=== PATIENT | female | born 1950 | race Caucasian/White ===

== ENCOUNTER 2020-11-03 13:19 | Outpatient (CLI) | payer MEDICARE, BC, SELFPAY ==
--- NOTE | 2020-11-03 06:00 | DI.RAD_ITS ---
Exam(s) XR PAIN CLINIC LUMBAR SP 2V EXAM: XR PAIN CLINIC LUMBAR SP 2V CLINICAL HISTORY: Dx: Lumbar Radiculopathy TECHNIQUE: 2D and realtime digital imaging was performed. Radiologist not present. CONTRAST MATERIAL: None. COMPARISON: No exams were available for comparison FINDINGS: Fluoroscopy was provided for pain management therapy performed for lumbar epidural steroid injection Please refer to procedure report or details. Cumulative dose: Ka,r=14.12 mGy IMPRESSION: RADIATION DOSE DELIVERED:
[2020-11-03 13:50] VITALS: BP 118/76; PULSE 72; RESP 18; TEMP 36.6; O2SAT 93
[2020-11-03 14:32] VITALS: BP 135/84; PULSE 74; RESP 19; O2SAT 100
[2020-11-03] MEDS: Omnipaque 240 MG/ML 50 ML BTL IJ (14:41)
[2020-11-03] MEDS: methylPREDNISolone ACETATE 40 MG/ML VIAL IJ (14:41)
--- NOTE | 2020-11-03 15:13 | PDOC.PAIN ---
Pain Clinic Procedure Note Procedure Note Procedure Note: Lumbar Epidural Steroid Injection Procedure Note Date of service: COMMENTS: Pre-procedure VAS pain level was 10/10. Elis Alcantar has been referred to the [facility] for lumbar epidural steroid injection. The patient was greeted by the nurse who verified patients name and . Patient was then taken to the fluoroscopy suite. The patient was interviewed and the medial record reviewed. There were no medical, pharmacologic, radiographic, or other structural contraindications to attempting fluoroscopically guided lumbar epidural steroid injection. Risks and expected side effects as well as potential benefits of the procedure were reviewed and voiced concerns expressed. The patient consent form was signed and witnessed. Standard patient time-out procedure was performed. L5-S1 off to the right paramedian interlaminar space. The patient was placed in the prone position on the fluoroscopy table and automated blood pressure cuff and pulse oximeter applied. The skin entry point for entering/approaching the epidural space by a and marked. Following thorough chlorhexadine preparation of the skin and draping and 1% lidocaine infiltration of the skin entry point and subcutaneous tissues, a 18 gauge Touhy needle was placed under fluoroscopic guidance and with loss of resistance technique into the epidural space. Needle tip placement and depth were aided and confirmed by fluoroscopy. There was no paresthesia or return of blood or CSF through the needle. 1 cc's of Omnipaque 240 was injected with clear epidural spread confirmed with fluoroscopy. 40mg depomedrol was injected. There was not any unusual discomfort expressed by Elis Alcantar. Patient's vital signs were stable throughout the procedure and were as recorded in nursing records. Follow up plans and appointments were discussed with patient. Post procedure instruction was given as documented in nursing records and having met discharge criteria and was discharged from the [facility]. COMMENTS: If this procedure is helpful, it can be completed up to 3 times per 12 months. Post-procedure VAS pain level was 5/10. Dawson Dinero DO, MPH Pain Management
== END 2020-11-03 13:20 | disposition home or self-care (01) ==
PROVIDERS: PCP Family Medicine; Visit Provider Preventive Medicine Occupational Medicine
DX: M54.17 Radiculopathy, lumbosacral region (principal)
CPT/HCPCS: 62323; 72100; J1030; Q9967

== ENCOUNTER 2023-01-07 13:11 | Outpatient (CLI) | payer MEDICARE, BC, SELFPAY ==
--- NOTE | 2023-01-07 07:15 | DI.RAD_ITS ---
Exam(s) XR PAIN CLINIC LUMBAR SP 2V EXAM: XR PAIN CLINIC LUMBAR SP 2V CLINICAL HISTORY: Dx: Lumbar Radiculopathy TECHNIQUE: 2D and realtime digital imaging was performed. CONTRAST MATERIAL: Refer to procedure report. COMPARISON: No exams were available for comparison FINDINGS: Fluoroscopy was provided for Dr. Dinero during the performance of a lumbar epidural steroid injection. Please refer to the procedure report for complete details. Ka,r=7.88 mGy IMPRESSION:
[2023-01-07 13:56] VITALS: BP 125/79; PULSE 79; RESP 20; TEMP 36.6; O2SAT 97
[2023-01-07 14:31] VITALS: BP 140/73; PULSE 78; RESP 20; O2SAT 96
[2023-01-07] MEDS: Omnipaque 240 MG/ML 50 ML BTL IJ (14:37)
[2023-01-07] MEDS: methylPREDNISolone ACETATE 80 MG/ML VIAL IJ (14:39)
--- NOTE | 2023-01-08 10:19 | PDOC.PAIN ---
Date of service: 01/07/23 Time of Service: 13:00 Pain Managment Procedure Note Procedure Note Procedure Note: PROCEDURE NOTE LUMBAR EPIDURAL STEROID INJECTION Date of Service: January 07, 2023 Patient:Elis Sheppard? Provider: Dawson Dinero DO, MPH Elis Alcantar has been referred to the [facility] for a lumbar epidural steroid injection. Pre-operative diagnosis: Lumbosacral Radiculopathy Post-operative diagnosis: Same Pre-Procedure Pain: VAS= 8 /10 Comments: She was previously evaluated and referred for this procedure. She has low back pain with pain to the right leg. I last completed this procedure on her on 11/04/20 and she had >12 months of pain relief. She continues with her daily home exercises X 6 months. Elis was interviewed and the medical record was reviewed.? There were no medical, pharmacologic, radiographic or other structural contraindications to attempting fluoroscopically guided Lumbar epidural steroid injection.? Risks, potential side effects, indications, and potential benefits of the procedure were reviewed with Elis.? Questions and concerns were addressed.? After it was clear that Elis was fully informed about the procedure, the printed consent form was signed by the patient and myself.? Elis was placed in the prone position on the fluoroscopy table and automated blood pressure cuff and pulse oximeter applied. The skin entry point for entering/approaching the epidural space for the lumbar epidural steroid injection was marked. Following thorough chlorhexadine preparation of the skin and draping and 1% lidocaine infiltration of the skin entry point and subcutaneous tissues, an 18 gauge Touhy needle was placed and advanced under fluoroscopic guidance and with loss of resistance technique into the L5-S1 epidural space. Needle tip placement and depth were aided and confirmed by fluoroscopy. There was no paresthesia or return of blood or CSF through the needle. 1 mls of Omnipaque 240 was injected with clear epidural spread confirmed with fluoroscopy. 80 mg of Depo-Medrol was? injected. This was followed by 1 ml of preservative-free normal saline to flush the steroid out of the needle. There was no unusual discomfort expressed by Elis. The needle was withdrawn without difficulty. (49 mls of Omnipaque was wasted) Elis was observed and was without hemodynamic, neurologic, or allergic reactions.? Fluoroscopic images were digitally archived. Elis's vital signs were stable throughout the procedure and were as recorded in nursing records. Follow up plans and appointments were discussed with Elis. Post procedure instruction was given as documented in nursing records and having met discharge criteria Elis was discharged from the [facility]. COMMENTS: No apparent complications. Post-procedure pain: VAS= 0/10. Elis to contact [facility] as needed. If at least 50% improvement in pain and/or function for at least 3 months is achieved, this procedure can be repeated. I personally performed this entire procedure. DAWSON DINERO DO, MPH ABPMR-subspecialty board certification in Pain Medicine [facility]
== END 2023-01-07 13:12 | disposition home or self-care (01) ==
PROVIDERS: PCP Family Medicine; Visit Provider Preventive Medicine Occupational Medicine
DX: M54.17 Radiculopathy, lumbosacral region (principal); M54.50 Low back pain, unspecified
CPT/HCPCS: 62323; 72100; J1040; Q9967

== ENCOUNTER → 2024-09-17 13:58 | Outpatient (BNVA) | payer MEDICARE, BC, SELFPAY | PROVIDERS: PCP Family Medicine; Referring Provider Family Medicine; Visit Provider Physical Therapy Assistant | DX: Z12.11 Encounter for screening for malignant neoplasm of colon (principal) ==

== ENCOUNTER 2024-11-12 12:32 | Day surgery (SDC) | payer MEDICARE, BC, SELFPAY ==
[2024-11-12 13:11] VITALS: BP 163/72; PULSE 77; RESP 20; TEMP 36.1; O2SAT 94
--- NOTE | 2024-11-12 13:24 | SCONE_ITS ---
Date of service: 11/12/24 Time of Service: 13:31 Assessment and Plan Assessment and plan (1) Bowel habit changes: Status: Acute Assessment and plan: 74-year-old woman with bowel habit changes and possible some low?grade GI bleeding. I was very straightforward with her that doing the procedures is not necessarily going to find answers and will definitely not make her feel any better. She expresses a clear understanding. Plan: EGD and colonoscopy with biopsies History of Present Illness Narrative: Elis has been having bowel habit issues and changes for the last couple years she says. Her last colonoscopy was 10 years ago and reportedly no findings. Reportedly there was some blood in her stools at some point. She tells me today that she had an MRI done at [facility] around [place] time that suggested she had rectal cancer. She says this was done by a concrete engineering technician and she has since seen some other doctors who told her she does not have rectal cancer. PFSH All Active Problems (Updated 11/12/24 @ 13:33 by Dmitry Peraza MD) Bowel habit changes (Acute) Coffee ground emesis (Acute) Alcohol use disorder (Acute) Medical History (Updated 11/12/24 @ 13:33 by Dmitry Peraza MD) Sigmoidoscopy performed (~10/21/20) Tremor Spinal stenosis Skin lesion of face Rotator cuff tear Osteoporosis Obstructive sleep apnea H/O macrocytic anemia Left shoulder tendonitis Knee pain, left Impingement of shoulder Herpes virus disease Head trauma Edema Type 2 diabetes mellitus Cognitive impairment signs for self Chronic cough Bronchitis Obesity (BMI 30.0-34.9) Abscess Abdominal pain in female Neurogenic claudication Macrocytic anemia Impingement syndrome of right shoulder Leg edema Dyspnea Pain of left hip joint GERD (gastroesophageal reflux disease) COPD (chronic obstructive pulmonary disease) Asthma Hypertensive disorder Depressive disorder Anxiety Diabetes mellitus Hypothyroidism Surgical History History of laparotomy History of cholecystectomy (~07/05/22) Hx of tonsillectomy Hx of appendectomy (~1964) H/O: hysterectomy (~1990) History of knee replacement (~06/17/09) B History of hip replacement Pt states that this surgery was not a hip replacement, but a repair of her abductor muscles. H/O elbow surgery H/O colonoscopy (~04/21/18) Family History (Updated 10/06/20 @ 13:45 by Aury Decker RN) Father Diabetes Type 1 Hypertension Paternal Grandfather Diabetes Type 1 Social History (Updated 09/25/24 @ 07:59 by PARTH Dewitt) Smoking/Tobacco Use Status: Current every day Tobacco Type: cigarettes Smoking risk assessment performed?: Yes Alcohol Intake: current Alcohol Intake frequency: 0-2 drinks per day Alcohol type: hard liquor Drug use: Never Substance use type: does not use Household members: friend(s) Housing: house Number of Children: 2 current occupation: Retired Current gender identity: female What type of physical activity do you participate in: independent ambulation Do you feel safe at home: Yes Do you feel safe in your relationship?: Yes Exam Narrative Exam Narrative: Gen: Non-toxic, comfortable and interactive Neuro: Alert and oriented x3 Psych: Good mood and affect. Adequate insight and understanding into condition. Chest: Non-labored breathing, no wheezing, no visible shortness of breath. Heart: Regular Results Last Vital Signs Temp 97.0 F L 11/12/24 13:11 Pulse 77 11/12/24 13:11 Resp 20 11/12/24 13:11 BP 163/72 H 11/12/24 13:11 Pulse Ox 94 11/12/24 13:11
--- NOTE | 2024-11-12 13:29 | W.ANESPRE ---
General Info Date of Service Date Performed: 11/12/24 Height: 5 ft 5 in Weight: 100.6 kg Body Mass Index (BMI): 36.8 Surgical Procedure: Operation Date: 11/12/24 12:50 Proposed Procedure Side Surgeon p Colonoscopy/Gastroscopy Dmitry Peraza MD Meds Allergies and Home Medications Allergies Allergy/AdvReac Type Severity Reaction Status Date / Time trazodone Allergy Unknown Other (See Verified 11/11/24 14:20 Comment) Home Medication ?Medication ?Instructions ?Recorded valacyclovir 500 mg tablet 1,000 mg PO BID PRN 10/06/20 budesonide 0.25 mg/2 mL suspension 0.25 mg inhalation BID 12/05/22 for nebulization (Pulmicort) albuterol sulfate 2.5 mg/3 mL 2.5 mg inhalation Q6H PRN 11/20/23 (0.083 %) solution for nebulization escitalopram oxalate 20 mg tablet 40 mg PO DAILY 11/20/23 fluticasone furoate 200 1 inh inhalation DAILY 11/20/23 mcg-vilanterol 25 mcg/dose inhalation powder (Breo Ellipta) ipratropium bromide 17 2 puff inhalation QID 11/20/23 mcg/actuation HFA aerosol inhaler (Atrovent HFA) pantoprazole 40 mg tablet,delayed 40 mg PO DAILY 11/20/23 release tiotropium bromide 18 mcg capsule 1 cap inhalation DAILY 11/20/23 with inhalation device (Spiriva with HandiHaler) torsemide 20 mg tablet 40 mg PO QAM 11/20/23 levothyroxine 150 mcg capsule 150 mcg PO DAILY 07/22/24 baclofen 10 mg tablet 20 mg PO BID 09/17/24 bisacodyl 5 mg tablet,delayed 5 mg PO ONCE #4 tabs 09/17/24 release (Dulcolax (bisacodyl)) polyethylene glycol 3350 17 17 g PO ONCE #238 grams 09/17/24 gram/dose oral powder Current Visit Medications: Current Medications Generic Name Dose Route Start Last Admin Trade Name Freq PRN Reason Stop Dose Admin Ringer's Solution 1,000 mls @ 80 mls/hr 11/12/24 06:00 IV 11/12/24 23:59 INFUSION SOTO IV Miscellaneous Supplies 1 each 11/12/24 06:00 Iv Access IV 11/12/24 23:59 DIRECTED SOTO Sodium Chloride 0 ml 11/12/24 06:00 Normal Saline Flush 10 Ml Syr IV 11/12/24 23:59 PRN PRN Sodium Chloride 0 ml 11/12/24 06:00 Normal Saline 10 Ml Vial IJ 11/12/24 23:59 DIRECTED PRN Sterile Water 0 ml 11/12/24 06:00 Water,Injection,Sterile 10 Ml Vial IJ 11/12/24 23:59 DIRECTED PRN PFSH Active Problems Active Problems: Problem Status Onset Code Coffee ground emesis Acute K92.0 Alcohol use disorder Acute F10.90 Medical History Medical History (Updated 11/12/24 @ 13:33 by Dmitry Peraza MD) Sigmoidoscopy performed (~10/21/20) Tremor Spinal stenosis Skin lesion of face Rotator cuff tear Osteoporosis Obstructive sleep apnea H/O macrocytic anemia Left shoulder tendonitis Knee pain, left Impingement of shoulder Herpes virus disease Head trauma Edema Type 2 diabetes mellitus Cognitive impairment signs for self Chronic cough Bronchitis Obesity (BMI 30.0-34.9) Abscess Abdominal pain in female Neurogenic claudication Macrocytic anemia Impingement syndrome of right shoulder Leg edema Dyspnea Pain of left hip joint GERD (gastroesophageal reflux disease) COPD (chronic obstructive pulmonary disease) Asthma Hypertensive disorder Depressive disorder Anxiety Diabetes mellitus Hypothyroidism Surgical History Surgical History History of laparotomy History of cholecystectomy (~07/05/22) Hx of tonsillectomy Hx of appendectomy (~1964) H/O: hysterectomy (~1990) History of knee replacement (~06/17/09) B History of hip replacement Pt states that this surgery was not a hip replacement, but a repair of her abductor muscles. H/O elbow surgery H/O colonoscopy (~04/21/18) Tobacco Smoking/Tobacco Use Status: Current every day Tobacco Type: cigarettes Passive smoking exposure: Yes Alcohol Alcohol Intake: current Alcohol intake frequency: 0-2 drinks per day Alcohol type: hard liquor Substance Use Substance use: Never Substance use type: does not use Vital Signs and Lab Results Vital Signs Most Recent Vital Signs in EMR: Most Recent Vital Signs Temp Pulse Resp BP Pulse Ox 36.1 C L 77 20 163/72 H 94 11/12/24 13:11 11/12/24 13:11 11/12/24 13:11 11/12/24 13:11 11/12/24 13:11 Point of Care Results Point of Care Results: Finger Stick Blood Glucose 92 11/12/24 12:58 Lab Results Blood Type / Crossmatch: No Data to Display Complete Blood Count: No Data to Display Complete Metabolic Panel: No Data to Display Liver Function Panel: No Data to Display Coagulation Panel: No Data to Display Cardiac Panel: No Data to Display Arterial Blood Gas: No Data to Display Venous Blood Gas: No Data to Display Pancreas Panel: No Data to Display Thyroid Panel: No Data to Display Infectious Disease: No Data to Display Blood Cultures: No Data to Display Toxicology Panel: No Data to Display Anesthesia Assessment and Plan Anesthesia History Personal History: No History of Anesthesia Complications Family History: No Family History of Anesthesia Complications Exercise Tolerance Exercise Tolerance: Metabolic Equivalents>4 Pertinent Negatives Pertinent Negatives: No Symptoms of GERD and No History of CVA/TIA Cardiac & Pulmonary Exam Cardiac Exam: Normal S1/S2 Heart Sounds Pulmonary Exam: Clear Bilateral Breath Sounds Implantable Cardiac Device Does patient have a Pacemaker or an ICD?: No Airway Exam Known Difficult Airway: No Mallampati Class: 1 Mouth Opening: Normal (> 3cm) Thyromental Distance: Less than 3 cm Neck Range of Motion: Full ROM Neck Circumference: Normal Teeth Condition: Normal Dentition ASA Classification ASA Score: ASA 3 Emergency Case?: No NPO Status NPO Status: NPO Clears >2 hours, Solids >8 hours Anesthesia Plan Resuscitation Status: Full Code Anesthesia Technique: General Anesthesia Airway Planned: Natural Airway Monitors Used: Standard Monitors
--- NOTE | 2024-11-12 13:35 | COLE_ITS ---
Date of service: 11/12/24 Time of Service: 13:35 Colonoscopy Report Procedure Description: PROCEDURES PERFORMED: 1. Colonoscopy with cold forceps biopsy PREOPERATIVE DIAGNOSIS: Abdominal bloating, GI bowel habit changes POSTOPERATIVE DIAGNOSIS: Diverticulosis, poor prep SURGEON: Kurt Peraza MD INDICATION FOR PROCEDURE: 74-year-old woman with chronic bowel habit changes and no previous workup. No family history of colon cancer. She also reports bloating. An isolated report of possible rectal cancer exists from an MRI she says she had 6 months ago. FINDINGS: Formed stool throughout the entire colon. I was able to reliably get to the ascending colon/cecum where a heavy stool burden is appreciated visually. I did not attempt to get into the terminal ileum. Colon mucosa shows no inflammation anywhere. I took random, nontargeted biopsies in a couple of places. Again, formed?stool was present everywhere and I cannot exclude polyps. Even a small colon cancer could have been missed. Polyps: No polyps were encountered -the prep prevented adequate assessment. There was diverticular disease present in the sigmoid and left colons. No visible inflammation. No obvious hemorrhoid disease. It can be reliably stated that there is no rectal cancer. SURVEILLANCE interval/FOLLOW-UP: The prep was completely inadequate. The patient had said that she had taken the prep, but got confused on which day to have her procedure. Her history is somewhat unreliable and I defer to her PCP on whether or not she needs to have a repeat colonoscopy in which case an extended prep should be performed. SPECIMENS: Yes EBL: Minimal COMPLICATIONS: None QUALITY of prep: Very poor - large polyps and even small colon cancers could have been missed. Biopsies of the colon mucosa were achieved in random places however. Procedure in detail: The patient gave written consent and was in agreement with the indications, the potential risks as well as the benefits of the procedure. They were turned from upper endoscopy (see separate procedure note) and a nesthesia was continued and I started the colonoscopy portion of the procedure. Digital rectal and visual examination was performed and grossly within normal limits. A well-lubricated flexible colonoscope was then introduced and passed without any notable difficulty all the way to the cecum. Formed stool was everywhere and mucosa visibility was quite?limited. The scope was then slowly withdrawn with the above-noted findings. The patient tolerated the procedure well and was taken to the PACU in hemodynamically stable condition.
--- NOTE | 2024-11-12 13:35 | W.PM.ENDDOP ---
Date of service: 11/12/24 Time of Service: 13:35 Endoscopy Report PROCEDURE DESCRIPTION: PROCEDURES PERFORMED: 1. EGD with biopsies PREOPERATIVE DIAGNOSIS: Bowel habit changes POSTOPERATIVE DIAGNOSIS: SURGEON: Kurt Peraza MD INDICATION FOR PROCEDURE: 74-year-old woman with bowel habit changes that are chronic but have never been worked up. FINDINGS: D2/D3 = normal -multiple biopsies were taken (x 4) to rule out celiac disease D1/bulb = normal - no ulcers or inflammation Pylorus = normal Antrum = mildly inflamed appearance, no ulcers, cold forceps biopsies were taken to rule out H. pylori routinely Body = mildly inflamed appearance, biopsies taken with cold forceps technique routinely Fundus = normal, no polyps Cardia = normal Hiatus = no hiatal hernia Distal esophagus = no inflammation, no esophagitis, no Ramires's, no stricture. Biopsies taken routinely. Mid esophagus = normal Proximal esophagus/hypopharynx/vocal cords = normal SURVEILLANCE-INTERVAL/FOLLOW-UP: Follow-up with PCP and/your GI doctors, no surveillance necessary Specimens: Yes EBL: Minimal COMPLICATIONS: None Procedure in detail: The patient gave written consent and was in agreement with the indications, the potential risks as well as the benefits of the procedure. The patient was taken to the endoscopy suite and laid on their left side. Anesthesia was given which was tolerated well. We performed a timeout and we are in agreement I started the procedure. A well-lubricated endoscope was gently and carefully advanced down the esophagus, into the stomach the scope was and through the pylorus into the duodenum. The scope was then slowly withdrawn with the above-noted findings/interventions. The patient tolerated the procedure well and was then turned for colonoscopy (see separate procedure note).
--- NOTE | 2024-11-12 13:35 | W.PM.DSUDISC ---
Date of service: 11/12/24 Discharge Plan Disposition Patient Disposition: Home Discharge Details Attending Provider: Dmitry Peraza Primary Care Provider: Jose Alejandro Mcpherson Home Meds and New Rx's Prescriptions: No Action valacyclovir 500 mg Tablet 1,000 mg PO BID PRN Rx Instructions: take 2 tablets every 12 hours for 1 day Repeat as needed for flare ups. levothyroxine 150 mcg capsule 150 mcg PO DAILY bisacodyl [Dulcolax (bisacodyl)] 5 mg tablet,delayed release (DR/EC) 5 mg PO ONCE Qty: 4 0RF Rx Instructions: Take per colonoscopy instructions provided by ordering providers office polyethylene glycol 3350 17 gram/dose powder 17 g PO ONCE Qty: 238 0RF Rx Instructions: Take per colonoscopy instructions provided by ordering providers office albuterol sulfate 2.5 mg /3 mL (0.083 %) solution for nebulization 2.5 mg inhalation Q6H PRN tiotropium bromide [Spiriva with HandiHaler] 18 mcg capsule, w/inhalation device 1 cap inhalation DAILY Rx Instructions: puncture 1 cap using device; one dose = 2 inhalations Atrovent HFA 17 mcg/actuation HFA aerosol inhaler 2 puff inhalation QID fluticasone furoate-vilanterol [Breo Ellipta] 200-25 mcg/dose blister with device 1 inh inhalation DAILY escitalopram oxalate 20 mg tablet 40 mg PO DAILY pantoprazole 40 mg tablet,delayed release (DR/EC) 40 mg PO DAILY torsemide 20 mg tablet 40 mg PO QAM baclofen 10 mg tablet 20 mg PO BID budesonide [Pulmicort] 0.25 mg/2 mL suspension for nebulization 0.25 mg inhalation BID Discharge Instructions Additional Instructions: FINDINGS: No significant findings on upper endoscopy. Some mild stomach inflammation was seen. Biopsies were taken of this he will get called with those results. I took some biopsies in your colon routinely. You do not have rectal cancer. The remainder of your colon was not adequately prepped to decipher much else. You can discuss with your PCP about whether or not to repeat a bowel prep and do so in an extended fashion in order to have the colonoscopy done. Stand Alone Forms: Anesthesia Discharge Inst., DSU Post EGD Instructions, Colonoscopy Post Instructions, [place] (DSU) Activity:: Activity as Tolerated Diet:: As Tolerated Discharge Orders Discharge Orders: Discharge Order (Routine); Ordered 11/12/24 Ordered By: Dmitry Peraza DS: Diagnosis Discharge Diagnosis (1) Bowel habit changes: Status: Acute
[2024-11-12] MEDS: Lactated Ringers 1,000 ML 80 ML IV (13:37)
[2024-11-12 13:38] VITALS: BMI 36.8
--- NOTE | 2024-11-12 14:02 | BOWEL_PTH ---
PATIENT: Elis Alcantar LOC: [facility] U#:[id number] AGE/SX: 74/F ROOM: RE11/12/[address]: Dmitry Peraza : 1950 BED: DIS: 11/12/2024 SPEC #: [id number] RECD: 11/12/24 17:52 STATUS: ANASTASIYA RE #: [id number] ANTOINE: 11/12/24 14:[address]: Dmitry Peraza DEPT: Surgical Specimen RECD BY: Liliana Antony ENTERED: 11/12/24 17:54 SP TYPE: Bowel OTHR DR: Jose Alejandro Mcpherson Tissues: 1 - BIOPSY BOWEL 2 - STOMACH BIOPSY 3 - STOMACH BIOPSY 4 - ESOPHAGUS BIOPSY 5 - BIOPSY BOWEL Procedures: SPECIAL STAIN 2 GROSS AND MICRO LEVEL 4 Comments: [id number]
[2024-11-12 14:31] VITALS: BP 109/51; PULSE 65; RESP 16; TEMP 36.5; O2SAT 94
[2024-11-12 14:57] VITALS: BP 134/79; PULSE 64; RESP 14; TEMP 36.3; O2SAT 98
--- NOTE | 2024-11-12 15:03 | W.ANESPOSTOP ---
Postoperative Evaluation Date, Time and Location Date Performed: 11/12/24 Time Performed: 15:03 Patient Location: Day Surgery Unit Vital Signs Most Recent Imported Vital Signs: Most Recent Vital Signs Temp Pulse Resp BP Pulse Ox 36.3 C L 64 14 134/79 98 11/12/24 14:57 11/12/24 14:57 11/12/24 14:57 11/12/24 14:57 11/12/24 14:57 Pain Score Most Recent Pain Score: Most Recent Pain Score Pain Level 0 11/12/24 14:57 Assessment Mental Status: Awake (Alert & Oriented to Patient Baseline) Airway and Respiratory Function: Patent airway with normal (patient baseline) respiratory exam Cardiovascular Function: Hemodynamically Stable Hydration Status: Adequately Hydrated Nausea & Vomiting: No Nausea or Vomiting Pain: Pt. Denies Any Pain Peripheral Nerve Block: Patient did not receive a nerve block
== END 2024-11-12 15:25 | disposition home or self-care (01) ==
PROVIDERS: PCP Family Medicine; Visit Provider Student in an Organized Health Care Education/Training Program
PROC: (CPT 45380; principal; 2024-11-12 12:45)
DX: Z12.11 Encounter for screening for malignant neoplasm of colon (principal); K92.0 Hematemesis; R19.4 Change in bowel habit; K22.89 Other specified disease of esophagus; K29.40 Chronic atrophic gastritis without bleeding
CPT/HCPCS: 45380; 43239; 88305; 88313; J2003; J2704

== ENCOUNTER → 2025-01-12 09:26 | Outpatient (BNVA) | payer MEDICARE, BC, SELFPAY | PROVIDERS: PCP Family Medicine; Referring Provider Family Medicine; Visit Provider Psychiatry & Neurology Neurology | DX: F10.90 Alcohol use, unspecified, uncomplicated (principal); R25.1 Tremor, unspecified; R26.89 Other abnormalities of gait and mobility; E11.40 Type 2 diabetes mellitus with diabetic neuropathy, unspecified; J44.89 Other specified chronic obstructive pulmonary disease; E11.59 Type 2 diabetes mellitus with other circulatory complications; I10 Essential (primary) hypertension | CPT/HCPCS: 99205; 99215; G2212 ==

== ENCOUNTER 2025-03-16 19:32 | Observation (INO) | payer MEDICARE, BC, SELFPAY ==
[2025-03-16 19:34] VITALS: BP 119/74; PULSE 68; RESP 18; TEMP 36.6; O2SAT 90
--- NOTE | 2025-03-16 20:30 | RT.EKG_ITS ---
APPROVED REPORT Exam: Resting ECG Reason for Exam: baseline/screening Patient Location: E HR:65 bpm ECG Measurements Heart Rate 65 AXIS IL 196 P -46 QRSd 124 QRS 66 QT 473 T 2 QTc 492 Conclusion Sinus or ectopic atrial rhythm...P axis (-45,135) Right bundle branch block...QRSd>120, terminal axis(90,270) Normal [place] Nonspecific ST-T changes
--- NOTE | 2025-03-16 20:30 | DI.RAD_ITS ---
Exam(s) XR CHEST 2V PA LATERAL EXAM: XR CHEST 2V PA LATERAL CLINICAL HISTORY: pain all over TECHNIQUE: 2D digital imaging was performed. Two views. COMPARISON: No exams were available for comparison FINDINGS: HEART: Normal size. Aorta: Not mildly tortuous. PULMONARY VASCULATURE: Normal. MEDIASTINUM: Unremarkable. LUNGS: A near scarring at the left lung base. Clear. PLEURAL SPACE: No pleural effusion or pneumothorax. BONE:Unremarkable for age. SOFT TISSUES: Unremarkable. IMPRESSION: No acute abnormality. The preliminary [facility] report was reviewed. DATA REPOSITORY: RADIATION DOSE DELIVERED:
[2025-03-16 21:09] VITALS: RESP 16
--- NOTE | 2025-03-16 21:22 | W.ED.GENAD ---
Discharge Plan Discharge Details Chief Complaint: Anxiety Primary Care Provider: Jose Alejandro Mcpherson ED Provider: Geronimo Perez Home Meds and New Rx's Prescriptions: No Action valacyclovir 500 mg Tablet 1,000 mg PO BID PRN Rx Instructions: take 2 tablets every 12 hours for 1 day Repeat as needed for flare ups. levothyroxine 150 mcg capsule 150 mcg PO DAILY mirabegron [Myrbetriq] 25 mg tablet extended release 24 hr 25 mg PO DAILY carbidopa-levodopa 25-100 mg tablet 1 tab PO BID Qty: 60 5RF albuterol sulfate 2.5 mg /3 mL (0.083 %) solution for nebulization 2.5 mg inhalation Q6H PRN tiotropium bromide [Spiriva with HandiHaler] 18 mcg capsule, w/inhalation device 1 cap inhalation DAILY Rx Instructions: puncture 1 cap using device; one dose = 2 inhalations Atrovent HFA 17 mcg/actuation HFA aerosol inhaler 2 puff inhalation QID fluticasone furoate-vilanterol [Breo Ellipta] 200-25 mcg/dose blister with device 1 inh inhalation DAILY escitalopram oxalate 20 mg tablet 40 mg PO DAILY pantoprazole 40 mg tablet,delayed release (DR/EC) 40 mg PO DAILY torsemide 20 mg tablet 40 mg PO QAM budesonide [Pulmicort] 0.25 mg/2 mL suspension for nebulization 0.25 mg inhalation BID HPI General Date/Time Provider Initiated Documentation: 03/16/25 20:38. HPI Narrative: 74 year-old female presents to ED today by POV/ambulating with a chief complaint of drinking excessively, having anxiety and depression, denies suicidal ideation or homicidal ideation, states that she has been nonparticipatory in her own activities of daily life, lives with her who appears to be in decent health and has good personal hygiene with onset insidiously, patient has been to [facility] and has current referrals for placement with [facility] in another facility in [place], patient and state that [facility] urged him to present to the ER. Quality described as pain all over with known arthritis, flat affect and not as participatory as she could be in history taking, no radiation to chest pain, shortness of breath, fever, intractable nausea or vomiting, black or bloody stools. Severity is described as moderate to severe for depression. Palliating factors include has spoken with [facility], not engaging in self-help and coping strategies at home. Provoking factors include chronic depression. Patient not anticoagulated. Related Data Home Medications ?Medication ?Instructions ?Recorded ?Confirmed valacyclovir 500 mg tablet 1,000 mg PO BID PRN 10/06/20 03/16/25 budesonide 0.25 mg/2 mL suspension 0.25 mg inhalation BID 12/05/22 03/16/25 for nebulization (Pulmicort) albuterol sulfate 2.5 mg/3 mL 2.5 mg inhalation Q6H PRN 11/20/23 03/16/25 (0.083 %) solution for nebulization escitalopram oxalate 20 mg tablet 40 mg PO DAILY 11/20/23 03/16/25 fluticasone furoate 200 1 inh inhalation DAILY 11/20/23 03/16/25 mcg-vilanterol 25 mcg/dose inhalation powder (Breo Ellipta) ipratropium bromide 17 2 puff inhalation QID 11/20/23 03/16/25 mcg/actuation HFA aerosol inhaler (Atrovent HFA) pantoprazole 40 mg tablet,delayed 40 mg PO DAILY 11/20/23 03/16/25 release tiotropium bromide 18 mcg capsule 1 cap inhalation DAILY 11/20/23 03/16/25 with inhalation device (Spiriva with HandiHaler) torsemide 20 mg tablet 40 mg PO QAM 11/20/23 03/16/25 levothyroxine 150 mcg capsule 150 mcg PO DAILY 07/22/24 03/16/25 carbidopa 25 mg-levodopa 100 mg 1 tab PO BID #60 tabs 01/12/25 03/16/25 tablet mirabegron 25 mg tablet,extended 25 mg PO DAILY 01/12/25 03/16/25 release 24 hr (Myrbetriq) Previous Rx's ?Medication ?Instructions ?Recorded carbidopa 25 mg-levodopa 100 mg 1 tab PO BID #60 tabs 01/12/25 tablet Allergies Allergy/AdvReac Type Severity Reaction Status Date / Time trazodone Allergy Unknown Other (See Verified 03/16/25 19:40 Comment) General Stated Complaint: Anxiety SHELBIE: 3 Review of Systems All systems reviewed & are unremarkable except as noted in HPI and below Exam Narrative Exam Narrative: GENERAL APPEARANCE: Obese, non-toxic, awake and alert- less than participatory, atraumatic, no acute distress. SKIN: Warm, pale, dry, intact, without rashes/lesions/ulcerations. HEAD: Normocephalic, atraumatic, normal hair distribution for gender/age. EYES: Normal conjunctiva, no exudates on lids/lashes. ENT: Nares patent, no circumoral cyanosis, no facial swelling NECK: Supple, trachea midline, painless cervical ROM. LUNGS/CHEST: Lungs CTA bilaterally- no rhonchi/rales diffusely, mild expiratory wheeze R base, non-labored respirations, normal A/P diameter, symmetrical expansion, no chest wall deformity HEART (CV/PV): Regular rate and rhythm without murmur, no peripheral edema, no JVD. ABDOMEN: Soft, non-distended, no guarding, no tenderness. MSK: Normal ROM, no swelling/deformity to bilateral UEs or LEs, moving all extremities without weakness, no cyanosis, spine midline without tenderness, normal curvature. NEURO: Mental Status AAOx4 - alert to person, place, time, events No facial droop, no forehead involvement. Motor: No focal weakness - strength 5/5 in bilateral UEs and LEs, proximal and distal, symmetric. Sensory: sensation intact to light touch globally. Gait normal: patient ambulated without ataxia into ED room. PSYCH: dysthymic, cooperative, pleasant, appropriate speech, denies SI/HI Course Vital Signs Vital signs: Vital Signs Temperature 36.6 C 03/16/25 19:34 Pulse 68 03/16/25 19:34 Respiratory Rate 18 03/16/25 19:34 Blood Pressure 119/74 03/16/25 19:34 Pulse Oximetry 90 L 03/16/25 19:34 Temperature 36.6 C 03/16/25 19:34 Temperature Source Tympanic 03/16/25 19:34 Pulse 68 03/16/25 19:34 Respiratory Rate 16 03/16/25 21:09 Respiratory Effort Normal, Non-Labored 03/16/25 21:09 Respiratory Depth Normal 03/16/25 21:09 Respiratory Pattern Normal 03/16/25 21:09 Blood Pressure 119/74 03/16/25 19:34 Pulse Oximetry 90 L 03/16/25 19:34 Oxygen Delivery Method Room Air 03/16/25 19:34 Oxygen Flow Rate 0 03/16/25 19:34 Pain Level 8 03/16/25 19:34 Medical Decision Making This dictation utilizes [id number] dictation software and may contain unedited grammatical errors. 74 year-old female presents to ED today by POV/ambulating with a chief complaint of drinking excessively, having anxiety and depression, denies suicidal ideation or homicidal ideation, states that she has been nonparticipatory in her own activities of daily life, lives with her who appears to be in decent health and has good personal hygiene with onset insidiously, patient has been to [facility] and has current referrals for placement with [facility] in another facility in [place], patient and state that [facility] urged him to present to the ER. Quality described as pain all over with known arthritis, flat affect and not as participatory as she could be in history taking, no radiation to chest pain, shortness of breath, fever, intractable nausea or vomiting, black or bloody stools. Severity is described as moderate to severe for depression. Palliating factors include has spoken with [facility], not engaging in self-help and coping strategies at home. Provoking factors include chronic depression. Patients' medical history: Alcohol use disorder, diabetes mellitus, cognitive impairment, obesity, COPD, asthma, hypertension, imbalance. Family and social history: Drinking excessively every day, does not endorse in amount. Pertinent exam findings / vital signs include benign abdomen, benign cardiopulmonary exam, flat affect, intermittently sleeping in exam. Differential / pathologies of concern include alcohol use disorder, depression, anxiety, not suicidal or homicidal ideation, debility due to alcoholism. Diagnostic studies of: -CBC, CMP, lactate, x-ray chest, EKG, alcohol level, troponin, ammonia, lipase, magnesium, TSH, UDS, urinalysis, mental health consult. - CBC benign - Lactate 2.9 likely in the setting of alcohol intake, poor diet recently, dehydration - CMP unremarkable without electrolyte abnormalities or deranged LFTs - Magnesium within normal limits - Troponin negative - EKG shows sinus rhythm at 65 bpm with right bundle branch block, no acute ST abnormalities and some T wave inversions that are not peaked or deeply inverted and chronic Interventions of: - Per [facility] they want her to stay in the hospital without a clear medical reason or acute psychiatric danger to self/others. They are updating referrals, they state they cannot take her to care bed tonight. - Due to patients concern of safety in home and ADLs, she will be boarded in Zone B until care management can see her tomorrow, and perhaps care bed could be warranted by that time. ED Course: 74-year-old female with multiple visits to [facility] and contact made prior with [facility] presents with alcohol use issues as well as depression, denies SI and HI but family feels she is unsafe at home, her laboratory workup shows only an isolated elevated lactate likely in the setting of malnourishment not taking good care of herself as well as possibly not clearing lactate due to her acute alcohol use lately. [facility] is pursuing placement for her, I think it would be best for the patient to have a care management consult who can connect with [facility] tomorrow as she may be more appropriate for care bed situation until she can be placed long-term, [facility] protocol center every 4 hours. Patient signed out to oncoming provider Dr. Reeves at shift change. Disposition of Alcohol Use Disorder, Depression. Patient verbalized understanding of the plan and return to ED criteria and engaged in shared decision making. Medical Records Medical records reviewed: Yes I reviewed the patient's medical records. Imaging Data Radiologic Study: Attestation: I personally reviewed and interpreted this imaging study as follows: Imaging: X-Ray Radiologist's impression: Exam: XR Chest Exam date and time: 03/16/2025 9:08 PM Age: 74 years old Clinical indication: Pain all over TECHNIQUE: Imaging protocol: Radiologic exam of the chest. Views: 2 views. COMPARISON: No relevant prior studies available. FINDINGS: Lungs: No alveolar infiltrate. Left basilar linear parenchymal scarring or subsegmental collapse / atelectasis. Pleural spaces: No pleural fluid collection. No pneumothorax. Heart/Mediastinum: Normal heart size. Vasculature: Calcific thoracic aorta. Bones/joints: Spinal degenerative changes. IMPRESSION: 1. No acute infiltrate. 2. Left basilar linear parenchymal scarring or subsegmental collapse / atelectasis. Dictated and Authenticated by: Cristofer Maddox MD. Lab Data Lab results reviewed: Yes I reviewed the patient's lab results. Labs: Laboratory Tests Range/Units 03/16/25 21:45 WBC (4.4-10.8) 10^3/uL 4.59 RBC (3.93-5.22) 10^6/uL 3.86 L Hgb (11.2-15.7) g/dL 13.4 Hct (36.0-46.0) % 40.4 MCV (80-95) fL 105 H MCH (27.0-33.0) pg 34.7 H MCHC (32.0-36.0) % 33.2 RDW (11.7-14.6) % 13.8 Plt Count (130-400) 10^3/uL 258 MPV (8.0-11.0) fL 10.0 Immature Gran % % 0.2 Neutrophils % % 50.6 Lymphocytes % % 35.5 Monocytes % % 12.2 Eosinophils % % 1.1 Basophils % % 0.4 Nucleated RBC % (0.0-0.3) % 0.0 Absolute Neutrophils (1.2-6.7) 10^3/uL 2.32 Absolute Lymphocytes (1.2-3.4) 10^3/uL 1.63 Absolute Monocytes (0.1-0.8) 10^3/uL 0.56 Absolute Eosinophils (0.0-0.7) 10^3/uL 0.05 Absolute Basophils (0.0-0.2) 10^3/uL 0.02 VBG Lactate (<or=2.0) mmol/L 2.9 H* Sodium (136-145) mmol/L 141 Potassium (3.5-5.1) mmol/L 4.0 Chloride (98-107) mmol/L 100 Carbon Dioxide (21.0-32.0) mmol/L 31.6 Anion Gap (3-11) mmol/L 9.4 BUN (7-18) mg/dL 12 Creatinine (0.55-1.02) mg/dL 1.0 Est GFR (CKD-EPI 2020) (mL/min/1.73m2) 58.39 Glucose (74-106) mg/dL 140 H Calcium (8.5-10.1) mg/dL 9.7 Magnesium (1.8-2.4) mg/dL 2.1 Total Bilirubin (0.2-1.0) mg/dL 0.2 AST (15-37) U/L 13 L ALT (14-59) U/L 13 L Alkaline Phosphatase (46-116) U/L 86 Troponin I (<or=51) ng/L 7 Total Protein (6.4-8.2) g/dL 7.6 Albumin (3.4-5.0) g/dL 3.5 PFSH All Active Problems Diabetic neuropathy (Acute) Imbalance (Acute) Bowel habit changes (Acute) Coffee ground emesis (Acute) Alcohol use disorder (Acute) Medical History Sigmoidoscopy performed (~10/21/20) Tremor Spinal stenosis Skin lesion of face Rotator cuff tear Osteoporosis Obstructive sleep apnea Left shoulder tendonitis Knee pain, left Impingement of shoulder Herpes virus disease Head trauma Type 2 diabetes mellitus Cognitive impairment signs for self Chronic cough Bronchitis Obesity (BMI 30.0-34.9) Abscess Abdominal pain in female Neurogenic claudication Macrocytic anemia Impingement syndrome of right shoulder Leg edema Dyspnea Pain of left hip joint GERD (gastroesophageal reflux disease) COPD (chronic obstructive pulmonary disease) Asthma Hypertensive disorder Depressive disorder Anxiety Hypothyroidism Surgical History History of esophagogastroduodenoscopy (~10/2024) History of laparotomy History of cholecystectomy (~07/05/22) Hx of tonsillectomy Hx of appendectomy (~1964) H/O: hysterectomy (~1990) History of knee replacement (~06/17/09) B History of hip replacement Pt states that this surgery was not a hip replacement, but a repair of her abductor muscles. H/O elbow surgery H/O colonoscopy (~10/2024) Patient did not have adequate prep Family History Father Diabetes Type 1 Hypertension Paternal Grandfather Diabetes Type 1 Social History Smoking/Tobacco Use Status: Current every day Tobacco Type: cigarettes Smoking risk assessment performed?: Yes Alcohol Intake: current Alcohol Intake frequency: 0-2 drinks per day Alcohol type: hard liquor Drug use: Never Substance use type: does not use Household members: friend(s) Housing: house Number of Children: 2 current occupation: Retired Current gender identity: female What type of physical activity do you participate in: independent ambulation Do you feel safe at home: Yes Do you feel safe in your relationship?: Yes
[2025-03-16 21:51] LABS: Abs Immature Grans 0.01 10^3/uL (0.0-0.06); HCT 40.4 % (36.0-46.0); HGB 13.4 g/dL (11.2-15.7); Immature Grans % 0.2 %; MCH 34.7 pg (27.0-33.0); MCHC 33.2 % (32.0-36.0); MCV 105 fL (80-95); MPV 10.0 fL (8.0-11.0); Platelet Count 258 10^3/uL (130-400); RBC 3.86 10^6/uL (3.93-5.22); RDW 13.8 % (11.7-14.6); RDW-SD 53.6 fL; WBC 4.59 10^3/uL (4.4-10.8)
--- NOTE | 2025-03-16 22:03 | DI.[facility]_ITS ---
PROCEDURE INFORMATION: Exam: XR Chest Exam date and time: 03/16/2025 9:08 PM Age: 74 years old Clinical indication: Pain all over TECHNIQUE: Imaging protocol: Radiologic exam of the chest. Views: 2 views. COMPARISON: No relevant prior studies available. FINDINGS: Lungs: No alveolar infiltrate. Left basilar linear parenchymal scarring or subsegmental collapse / atelectasis. Pleural spaces: No pleural fluid collection. No pneumothorax. Heart/Mediastinum: Normal heart size. Vasculature: Calcific thoracic aorta. Bones/joints: Spinal degenerative changes. IMPRESSION: 1. No acute infiltrate. 2. Left basilar linear parenchymal scarring or subsegmental collapse / atelectasis. Dictated and Authenticated by: Cristofer Maddox MD. Orderin Ana Melton MD
[2025-03-16 22:11] LABS: ALT 13 U/L (14-59); AST 13 U/L (15-37); Albumin 3.5 g/dL (3.4-5.0); Alkaline Phosphatase 86 U/L (46-116); Anion Gap 9.4 mmol/L (3-11); BUN 12 mg/dL (7-18); Bilirubin, Total 0.2 mg/dL (0.2-1.0); CO2 31.6 mmol/L (21.0-32.0); Calcium 9.7 mg/dL (8.5-10.1); Chloride 100 mmol/L (98-107); Estimated GFR 58.39 (mL/min/1.73m2); Glucose 140 mg/dL (74-106); Potassium 4.0 mmol/L (3.5-5.1); Sodium 141 mmol/L (136-145); Total Protein 7.6 g/dL (6.4-8.2)
--- NOTE | 2025-03-16 22:18 | PDOC.MHCN_ITS ---
Date of service: 03/16/25 Time of Service: 22:15 Mental Health Emergency Note Release [facility] release signed:: Yes Reason for Visit Elis is previously known to [facility] but not this promotion writer. Per collateral reports client spoke to Reynaldo from [facility] earlier today and reported she needed to wait from the ED for treatment due to the significant increase in her depression and substance usage. Elis presents to [facility] due to these concerns with a want to stay overnight or until placed at an inpatient facility. In the last 2 weeks has the pt presented for ES prior to today?: Unknown Client Information Client is: New Well Housed: Yes Non Suicidal Self Injury Current: No History: No Safety Risk/Harm to Self or Others Current Ideation to Harm Self or Others: No Risk: Does risk to harm exist?: No Risk: N/A Duty to warn indicated: No Asssessment/Mental Status Appearance: Disheveled Attitude: Cooperative Behavior: Unremarkable Speech: Normal Affect: Cogruent with mood Mood: Depressed and Anxious Thought process: Unremarkable Hallucinations: No evidence Delusions: No evidence Attention: Unremarkable Perception: Not impaired Orientation: Fully orientated Memory: Intact Insight: Fair Judgement: Fair Neurovegetative Symptoms Sleep: Decrease Appetitie: Disordered Interests: Decrease Energy: Decrease Libido: Not applicable Substance Use: Do you use nicotine?: No Have you used substances in the last 7 days?: yes, Client drinks 3-4 vodka seltzers daily and if she runs out of vodka she then drinks beer. Additional Issues: Assaultive/Threatening Behavior: No Medical Concerns: No Client engaged in active self harm w/weapon: No Threatening to run away: No Child reported abuse/neglect: No Voluntarily presenting for services: Yes Domestic violence is a concern: No Extreme Psychosis or extreme behavior is present: No Impression Elis is a [age] year old female who resides with her significant other. 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 Elis has previous encounters with [facility] but no previous encounters with this promotion writer. Elis presents laying in a hospital bed via Zoom, Elis reports she is not doing well. Elis reports I couldn't take it anymore, I collapsed, that's it, I felt like I was dying Elis reports this is how she felt prior to outreaching and speaking to [facility]. Elis reports she has developed a problem with drinking and that she feels her drink consumption is too much, Elis tried not to drink today but could not do it and she is afraid of withdrawal symptoms. Elis had 1 vodka seltzer today. Elis reports a diagnosis of anxiety and depression and a significant increase in her depression symptoms. Elis has not showered for about one month, she sleeps all day, is awake at night, and feels like she does not want to be around people. Elis did share she is excited that her grandson just had two children making her a great grandmother. Elis shared a lot of family stressors including a daughter going through a divorce, grandson getting out of penitentiary and another grandson running away. Elis has also been helping her daughter financially adding to Elis' stress level. Elis reports she wants to remain at [facility] until inpatient treatment is secured if that is an option but she is concerned it may not be due to a conversation she had with some staff at [facility]. This promotion writer let Elis know that she would talk to the provider and recommend she stays at the hospital until treatment is secured as her symptoms have been increasing. Plan/Disposition Recommended Disposition: [facility] Services [facility] Services: Therapy and Hospitalization (Referrals have been sent to [facility] and [facility]. ) facilities contacted. Plan: This promotion writer spoke to Dr Perez and reccommened she stays overnight at [facility] to support her advocating she would feel safer at the hospital as she came to the ED seeking help for inpatient treatment. This promotion writer has asked Dr Perez to call [facility] if she is to be discharged so [facility] can follow up with the client at her home in the morning on 03/17. Person reported agreement to plan: Yes Reports/communication Outcome discussed with: ED/Personnel
[2025-03-16 22:21] LABS: Magnesium 2.1 mg/dL (1.8-2.4); Troponin I 7 ng/L (<or=51)
[2025-03-16 22:34] LABS: Lipase 29 U/L (<78)
[2025-03-16 22:40] LABS: Ammonia < 10 umol/L (11-32)
[2025-03-16 22:49] LABS: TSH (W/Ref FT4) 74.89 uIU/mL (0.36-3.74)
--- NOTE | 2025-03-17 07:21 | ED.PSYCHBOAR ---
Date of service: 03/17/25 Time of Service: 07:24 Psychiatric Border Handoff Update Brief Story: Patient was reassessed by mental health. At this time she denies homicidal or suicidal ideations. She does state that she is depressed, and she is certainly seems clinically depressed. She states that she does not want to do anything, feels like she does not have energy to do anything, and just does not know if life is worth living. Review of the patient's labs demonstrate notable hypothyroidism, no UTI. She has no abdominal pain or tachycardia or hypotension to suggest significant organ ischemia or endorgan failure. Renal function normal. While here in zone B the patient has had multiple urinary episodes and has not been able to get to the bathroom and is urinating on the floor in her bed and in the hallway. Because of the limitations in zone B we do not have a bedpan in the room. Additionally there is concern that other zone the patients would potentially use a commode to hurt or harm others. A referral has been placed to [facility], however this is not available yet. Staff did attempt to reach out to the but were not able to get a hold of him today. I do feel that it would be appropriate to admit the patient for the time being as zone B is not the ideal scenario for her as we enhance her medical management by the restarting of her home medications, management of her hypothyroidism, and continued observation until a safe disposition plan is available. I will place a PT OT consult. We will get a C. difficile test because of the diarrhea she had while down here. Discussed the case with hospitalist Dr. Brewer he agrees assessment and plan. I have extensively reviewed the treatment plan with the patient. I have addressed all patient concerns at this time. I have also discussed the plan with the admitting physician and they agree with the current assessment and plan and have agreed to assume responsibility for the patient. All parties demonstrate verbal understanding and agreement with our assessment and plan at this time. The documentation in this chart was dictated using [employer] dictation software. Please excuse any dictation errors. Status: voluntary Able to leave: would need physician/WHITNEY and crisis evaluation prior to leaving Mediation Reconciliation performed: Yes Code Status ordered: Yes Discharge Plan Disposition Patient Disposition: Admit to [facility] Condition: Good Discharge Details Clinical Impression: Alcohol use disorder, Depression, Noncompliance with medications, Hypothyroidism Primary Care Provider: Jose Alejandro Mcpherson ED Provider: Geronimo Bay Home Meds and New Rx's Prescriptions: No Action valacyclovir 500 mg Tablet 1,000 mg PO BID PRN Rx Instructions: take 2 tablets every 12 hours for 1 day Repeat as needed for flare ups. mirabegron [Myrbetriq] 25 mg tablet extended release 24 hr 25 mg PO DAILY carbidopa-levodopa 25-100 mg tablet 1 tab PO BID Qty: 60 5RF albuterol sulfate 2.5 mg /3 mL (0.083 %) solution for nebulization 2.5 mg inhalation Q6H PRN Atrovent HFA 17 mcg/actuation HFA aerosol inhaler 2 puff inhalation QID escitalopram oxalate 20 mg tablet 40 mg PO DAILY pantoprazole 40 mg tablet,delayed release (DR/EC) 40 mg PO DAILY torsemide 20 mg tablet 40 mg PO QAM budesonide [Pulmicort] 0.25 mg/2 mL suspension for nebulization 0.25 mg inhalation BID Trelegy Ellipta 200-62.5-25 mcg blister with device 1 inh INHALATION DAILY Patient Comments: INHALE ONE PUFF BY MOUTH EVERY DAY DIRECTED levothyroxine 150 mcg tablet 150 mcg PO DAILY Patient Comments: TAKE ONE TABLET BY MOUTH EVERY DAY
[2025-03-17 07:50] VITALS: BP 145/77; PULSE 67; RESP 16; TEMP 36.3; O2SAT 92
[2025-03-17 08:13] LABS: Glucose Negative (Negative)
[2025-03-17 08:25] LABS: Cannabinoids THC Negative (Negative); METHADONE URINE SCREEN Negative (Negative)
[2025-03-17] MEDS: Ipratropium HFA 12.9 GM 200 PUFF INH IH ×3 (08:57→16:12)
[2025-03-17] MEDS: Tiotropium Bromide-Respimat 10 PUFF INH 2 PUFF IH (08:57)
[2025-03-17] MEDS: Torsemide 20 MG TAB 40 MG PO (08:58)
[2025-03-17] MEDS: Carbidopa 25/Levodopa 100 TAB PO ×2 (08:58→20:09)
[2025-03-17] MEDS: Escitalopram 20 MG TAB 40 MG PO (08:58)
[2025-03-17] MEDS: Budesonide/Formoterol 160/4.5 6 GM 60 PUFF INH IH (08:58)
[2025-03-17] MEDS: Mirabegron 25 MG TABCR PO (08:58)
[2025-03-17] MEDS: Pantoprazole 40 MG TABCR PO (09:07)
--- NOTE | 2025-03-17 14:15 | PDOC.CMPRO ---
Date of service: 03/17/25 Time of Service: 14:15 Care Management Progress Note Progress Note Text Progress Note Text: HARSH huddled with the ED provider and [facility] clinician regarding Elis's plan of care. Per [facility], she is denying SI and HI, and describes symptoms of depression, such as lack of energy and motivation, not having interest in doing things, inability to focus, etc, which are her biggest concern, along with her increased alcohol use. Per RN, Elis has been having a difficult time in the mileu of zone b, as she is having trouble making it to the bathroom. CM and charger tester discussed having a commode in her room; MD did not feel comfortable with this plan. MD feels that Elis would benefit from a medical observation due to her hypothyroidism. Referrals are pending at [facility] and [facility] for medication management to treat her symptoms of anxiety and depression, as they are interferring with her daily life. Per report, Elis lives with her significant other, and has family (not local) who are supportive. HARSH discussed her admission with the hospitalist and RN supervisor television [employer]; as she is denying SI and HI, she will not require a safety plan or 1:1 sitter at this time. Her plan will be to transfer to [facility], or to return home on a safety plan created between [facility] and Elis, if she stabilizes on her medications while at [facility]. CM will continue to follow. Social Determinants of Health Screening Will the Patient Participate in the Screening?: Declined to provide
--- NOTE | 2025-03-17 15:24 | MHPN_ITS ---
Date of service: 03/17/25 Time of Service: 11:48 Mental Health Emergency Note Release [facility] release signed:: Yes Reason for Visit Ms Alcantar is a 74 year old single female who resides in [place] with her partner and their cat. The client reports struggling over the summer with medical conditions getting worse and then feeling sad and hopeless around her physical health declining and not being able to walk. The client reports lack of motivation developing so that she was sleeping more and not getting out of bed. The client reports issues with concentrating starting to occur as well. The client states that she was not feeling up to four different vacations that she and her partner had planned. The client reports that she started to have between 3 and 4 cocktails each day for the past few months. The client states that her daughter who is a RN and her two other children are concerned for her health. The client is waiting for in patient treatment currently at [facility]. In the last 2 weeks has the pt presented for ES prior to today?: No Asssessment/Mental Status Appearance: Unremarkable Attitude: Cooperative and Friendly Behavior: Unremarkable Speech: Soft and Slow Affect: Flat Mood: Depressed Thought process: Poverty of content Hallucinations: No Delusions: No Attention: Unremarkable Perception: Not impaired Orientation: Fully orientated Memory: Intact Insight: Poor Judgement: Poor Neurovegetative Symptoms Sleep: Increase Appetitie: Decrease Interests: Decrease Energy: Decrease Libido: Not applicable Additional Issues: Assaultive/Threatening Behavior: No Medical Concerns: Yes Client engaged in active self harm w/weapon: No Threatening to run away: No Child reported abuse/neglect: No Voluntarily presenting for services: Yes Domestic violence is a concern: No Extreme Psychosis or extreme behavior is present: No Impression Ms Alcantar is a 74 year old single female who resides in [place] with her partner and their cat. The client reports struggling over the summer with medical conditions getting worse and then feeling sad and hopeless around her physical health declining and not being able to walk. The client reports lack of motivation developing so that she was sleeping more and not getting out of bed. The client reports issues with concentrating starting to occur as well. The client states that she was not feeling up to four different vacations that she and her partner had planned. The client reports that she started to have between 3 and 4 cocktails each day for the past few months. The client states that her daughter who is a RN and her two other children are concerned for her health. The client is waiting for in patient treatment currently at [facility]. Plan/Disposition Recommended Disposition: Hospitalization facilities contacted. Plan: Ms Alcantar is a 74 year old single female who resides in [place] with her partner and their cat. The client reports struggling over the summer with medical conditions getting worse and then feeling sad and hopeless around her physical health declining and not being able to walk. The client reports lack of motivation developing so that she was sleeping more and not getting out of bed. The client reports issues with concentrating starting to occur as well. The client states that she was not feeling up to four different vacations that she and her partner had planned. The client reports that she started to have between 3 and 4 cocktails each day for the past few months. The client states that her daughter who is a RN and her two other children are concerned for her health. The client is waiting for in patient treatment currently at [facility]. Reports/communication Outcome discussed with: ED/Personnel
--- NOTE | 2025-03-17 17:10 | W.PM.HP.N ---
Date of service: 03/17/25 Time of Service: 17:11 Assessment and Plan Assessment and plan (1) Diarrhea: Status: Acute Assessment and plan: C-Diff and stool pathogen PCR recent antibiotic as of 03/08/25 (2) Urinary and bowel incontinence: Status: Acute Assessment and plan: On home medicine regimen for urinary incontinence Will not preevent BM until C-diff results (3) Hypothyroidism: Status: Chronic Assessment and plan: On home medicine regimen - will investigate the need fro iV replacement d/t TSH 74 and T4 0.37 Was not taking meds consistently this might be linked to her increased depression, swelling - Telemetry (4) Alcohol use disorder: Status: Acute Assessment and plan: CIWA - assessment - Ethyl 49 on 03/15 (5) Depression: Status: Chronic Assessment and plan: on home antidepressant drug (6) Diabetic neuropathy: Status: Acute Assessment and plan: no drug regimen listed (7) Parkinson disease: Status: Chronic Assessment and plan: On home medicine regimen (8) Herpes virus disease: Assessment and plan: On home medicine regimen (9) Type 2 diabetes mellitus: Assessment and plan: A1c pending Gluc AC and HS with SSI AC (10) Cognitive impairment: Assessment and plan: Hx of Was i zone B - see mental health and psych notes (11) GERD (gastroesophageal reflux disease): Assessment and plan: Hx of IV PPI (12) COPD (chronic obstructive pulmonary disease): Assessment and plan: Outpatient medicine regimen (13) Asthma: Assessment and plan: outpatient inhalers (14) On deep vein thrombosis (DVT) prophylaxis: Status: Acute Assessment and plan: TEDs (15) Obesity: Status: Chronic Assessment and plan: GLP-[address] Nunez History of Present Illness History of Present Illness Chief Complaint: Diarrhea, urinary incontinence, hypothyrpoidism, swelling depression Narrative: This 74 yo patient with a post medical history of depression, hypothyroidism, DM, medicine non- compliance in Zone B in the ED d/t depression since 03/16 found to have profound hypothyroidism as per TSH 74 and T4 0.37, ETOH dependence with Ethyl at 49 and ongoing urinary incontinence and diarrhea X 1 was admitted to the medical surgical floor with telemetry to the hospitalist service for enhanced her medical management with ongoing PT Previous labs in the ED otherwise without actionable items. . Blood work ordered and pending. Patient denied suicidal ideation, fever, chest pain , headache, vomiting; reports urinary incontinence , diarrhea, no dysuria. Found to be safe to be admitted to the general floor w/o constant supervision as per discussion regarding the change in the level of monitoring in zone B . Referral has been placed to [facility]- not available yet. The was not reachable today. Patient ongoing full code as per zone B code status. Review of Systems All systems reviewed & are unremarkable except as noted in HPI and below PFSH All Active Problems (Updated 03/17/25 @ 17:38 by Vivien Hidalgo APRN) Obesity (Chronic) On deep vein thrombosis (DVT) prophylaxis (Acute) Parkinson disease (Chronic) Urinary and bowel incontinence (Acute) Diarrhea (Acute) Hypothyroidism (Chronic) Noncompliance with medications (Acute) Depression (Chronic) Diabetic neuropathy (Acute) Imbalance (Acute) Bowel habit changes (Acute) Coffee ground emesis (Acute) Alcohol use disorder (Acute) Medical History Sigmoidoscopy performed (~10/21/20) Tremor Spinal stenosis Skin lesion of face Rotator cuff tear Osteoporosis Obstructive sleep apnea Left shoulder tendonitis Knee pain, left Impingement of shoulder Herpes virus disease Head trauma Type 2 diabetes mellitus Cognitive impairment signs for self Chronic cough Bronchitis Obesity (BMI 30.0-34.9) Abscess Abdominal pain in female Neurogenic claudication Macrocytic anemia Impingement syndrome of right shoulder Leg edema Dyspnea Pain of left hip joint GERD (gastroesophageal reflux disease) COPD (chronic obstructive pulmonary disease) Asthma Hypertensive disorder Depressive disorder Anxiety Hypothyroidism Surgical History History of esophagogastroduodenoscopy (~10/2024) History of laparotomy History of cholecystectomy (~07/05/22) Hx of tonsillectomy Hx of appendectomy (~1964) H/O: hysterectomy (~1990) History of knee replacement (~06/17/09) B History of hip replacement Pt states that this surgery was not a hip replacement, but a repair of her abductor muscles. H/O elbow surgery H/O colonoscopy (~10/2024) Patient did not have adequate prep Family History Father Diabetes Type 1 Hypertension Paternal Grandfather Diabetes Type 1 Social History Smoking/Tobacco Use Status: Current every day Tobacco Type: cigarettes Smoking risk assessment performed?: Yes Alcohol Intake: current Alcohol Intake frequency: 0-2 drinks per day Alcohol type: hard liquor Drug use: Never Substance use type: does not use Household members: friend(s) Housing: house Number of Children: 2 current occupation: Retired Current gender identity: female What type of physical activity do you participate in: independent ambulation Do you feel safe at home: Yes Do you feel safe in your relationship?: Yes Meds Allergies and Home Medications Allergies Allergy/AdvReac Type Severity Reaction Status Date / Time trazodone Allergy Unknown Other (See Verified 03/16/25 19:40 Comment) Home Medications ?Medication ?Instructions ?Recorded ?Confirmed ?Type valacyclovir 500 mg tablet 1,000 mg PO BID PRN 10/06/20 03/16/25 History budesonide 0.25 mg/2 mL suspension 0.25 mg inhalation BID 12/05/22 03/16/25 History for nebulization (Pulmicort) albuterol sulfate 2.5 mg/3 mL 2.5 mg inhalation Q6H PRN 11/20/23 03/16/25 History (0.083 %) solution for nebulization escitalopram oxalate 20 mg tablet 40 mg PO DAILY 11/20/23 03/16/25 History ipratropium bromide 17 2 puff inhalation QID 11/20/23 03/16/25 History mcg/actuation HFA aerosol inhaler (Atrovent HFA) pantoprazole 40 mg tablet,delayed 40 mg PO DAILY 11/20/23 03/16/25 History release torsemide 20 mg tablet 40 mg PO QAM 11/20/23 03/16/25 History carbidopa 25 mg-levodopa 100 mg 1 tab PO BID #60 tabs 01/12/25 03/16/25 Rx tablet mirabegron 25 mg tablet,extended 25 mg PO DAILY 01/12/25 03/16/25 History release 24 hr (Myrbetriq) fluticasone fur. 200 mcg-umeclid 1 inh inhalation DAILY 03/17/25 03/17/25 History 62.5 mcg-vilant 25 mcg inhalat.powder (Trelegy Ellipta) levothyroxine 150 mcg tablet 150 mcg PO DAILY 03/17/25 03/17/25 History Exam Narrative Exam Narrative: Alert and oriented X3,swollen eye lids R> L neurologically intact,clear lungs, S1, S2 regular , no murmur, abdomen is non-distended, soft and non-tender, no CVA tenderness, moves all 4 ext but slowly Results Labs 03/16/25 21:45 03/16/25 21:45 Labs: Laboratory Results - last 24 hr 03/16/25 03/16/25 03/17/25 21:45 22:05 07:30 WBC 4.59 RBC 3.86 L Hgb 13.4 Hct 40.4 MCV 105 H MCH 34.7 H MCHC 33.2 RDW 13.8 Plt Count 258 MPV 10.0 Immature Gran % 0.2 Neutrophils % 50.6 Lymphocytes % 35.5 Monocytes % 12.2 Eosinophils % 1.1 Basophils % 0.4 Nucleated RBC % 0.0 Absolute Neutrophils 2.32 Absolute Lymphocytes 1.63 Absolute Monocytes 0.56 Absolute Eosinophils 0.05 Absolute Basophils 0.02 VBG Lactate 2.9 H* Sodium 141 Potassium 4.0 Chloride 100 Carbon Dioxide 31.6 Anion Gap 9.4 BUN 12 Creatinine 1.0 Est GFR (CKD-EPI 2020) 58.39 Glucose 140 H Calcium 9.7 Magnesium 2.1 Total Bilirubin 0.2 AST 13 L ALT 13 L Alkaline Phosphatase 86 Ammonia < 10 L Troponin I 7 Total Protein 7.6 Albumin 3.5 Lipase 29 TSH 74.89 H Free T4 0.37 L Urine Color Yellow Urine Clarity Clear Urine pH 6.0 Ur Specific [place] 1.020 Urine Protein Negative Urine Ketones Trace H Urine Blood Negative Urine Nitrite Negative Urine Bilirubin Negative Urine Urobilinogen 0.2 Ur Leukocyte Esterase Negative Urine Glucose Negative Urine Opiates Screen Negative Urine Methadone Screen Negative Ur Barbiturates Screen Negative Ur Tricyclics Screen Negative Ur Amphetamines Screen Negative U Benzodiazepines Scrn Positive A Urine Cocaine Screen Negative Ur THC Screen Negative Ethyl Alcohol 49.3 H Last Vital Signs Temp 36.3 C L 03/17/25 07:50 Pulse 67 03/17/25 07:50 Resp 16 03/17/25 07:50 BP 145/77 H 03/17/25 07:50 Pulse Ox 92 03/17/25 07:50 Time Spent Time spent with Patient: >75 minutes Time was spent: preparing to see the patient(eg.review tests), obtaining and/or reviewing separately otained hiistory, ordering medications,tests, procedures, referring, communicating with other health in home caregiver, indepentently interpreting results, counseling the patient, care coordination and other
--- NOTE | 2025-03-17 18:33 | W.PC.ACHO ---
Registration Status: ADM MARKY Primary Language: Preferred Language: ED Information & Data Chief Complaint Anxiety 03/16/25 21:22 Triage Note pt states she is dying and 03/16/25 19:34 doesn't feel pt states she is drinking too much and is depressed pt states i just know i am going to soon pt denies SI or HI Medical / Surgical History (Last Reviewed 01/12/25 @ 11:07 by Vidhi Park MD) Sigmoidoscopy performed (~10/21/20) Tremor Spinal stenosis Skin lesion of face Rotator cuff tear Osteoporosis Obstructive sleep apnea Left shoulder tendonitis Knee pain, left Impingement of shoulder Herpes virus disease Head trauma Type 2 diabetes mellitus Cognitive impairment Chronic cough Bronchitis Obesity (BMI 30.0-34.9) Abscess Abdominal pain in female Neurogenic claudication Macrocytic anemia Impingement syndrome of right shoulder Leg edema Dyspnea Pain of left hip joint GERD (gastroesophageal reflux disease) COPD (chronic obstructive pulmonary disease) Asthma Hypertensive disorder Depressive disorder Anxiety Hypothyroidism (Last Reviewed 01/12/25 @ 11:07 by Vidhi Park MD) History of esophagogastroduodenoscopy (~10/2024) History of laparotomy History of cholecystectomy (~07/05/22) Hx of tonsillectomy Hx of appendectomy (~1964) H/O: hysterectomy (~1990) History of knee replacement (~06/17/09) History of hip replacement H/O elbow surgery H/O colonoscopy (~10/2024) Most Recent Vital Signs Temperature 36.3 C L 03/17/25 07:50 Temperature Source Tympanic 03/17/25 07:50 Pulse 67 03/17/25 07:50 Respiratory Rate 16 03/17/25 07:50 Respiratory Effort Normal, Non-Labored 03/16/25 21:09 Respiratory Depth Normal 03/16/25 21:09 Respiratory Pattern Normal 03/17/25 02:00 Blood Pressure 145/77 H 03/17/25 07:50 Blood Pressure Mean 99 03/17/25 07:50 Pulse Oximetry 92 03/17/25 07:50 Oxygen Delivery Method Room Air 03/17/25 07:50 Oxygen Flow Rate 0 03/17/25 07:50 Pain Level 8 03/16/25 19:34 Allergies trazodone Allergy (Unknown, Verified 03/16/25 19:40) Other (See Comment) It makes it so I cant wake up per pt Active Medications Generic Name Dose Route Start Last Admin Trade Name Olivia PRN Reason Stop Dose Admin Budesonide/Formoterol Fumarate 2 puff 03/17/25 08:30 03/17/25 08:58 Budesonide/Formoterol 160/4.5 6 Gm 60 Puff Inh IH 1 inh BID SOTO Administration Carbidopa/Levodopa 1 tab 03/17/25 08:30 03/17/25 08:58 Carbidopa 25/Levodopa 100 Tab PO 1 tab BID SOTO Administration Escitalopram Oxalate 40 mg 03/17/25 08:30 03/17/25 08:58 Escitalopram 20 Mg Tab PO 40 mg DAILY SOTO Administration Ipratropium [place] 2 puff 03/17/25 08:30 03/17/25 16:12 Ipratropium Hfa 12.9 Gm 200 Puff Inh IH 2 inh QID SOTO Administration Mirabegron 25 mg 03/17/25 08:30 03/17/25 08:58 Mirabegron 25 Mg Tabcr PO 25 mg DAILY SOTO Administration Pantoprazole Sodium 40 mg 03/17/25 07:30 03/17/25 09:07 Pantoprazole 40 Mg Tabcr PO 40 mg DAILY@0730 SOTO Administration Tiotropium [place] 2 puff 03/17/25 08:30 03/17/25 08:57 Tiotropium [place]-Respimat 10 Puff Inh IH 1 inh DAILY SOTO Administration Torsemide 40 mg 03/17/25 08:30 03/17/25 08:58 Torsemide 20 Mg Tab PO 40 mg QAM SOTO Administration Diagnostics 03/17/25 03/17/25 03/16/25 Range/Units 17:41 07:30 22:05 WBC Pending (4.4-10.8) 10^3/uL RBC Pending (3.93-5.22) 10^6/uL Hgb Pending (11.2-15.7) g/dL Hct Pending (36.0-46.0) % MCV Pending (80-95) fL MCH Pending (27.0-33.0) pg MCHC Pending (32.0-36.0) % RDW Pending (11.7-14.6) % Plt Count Pending (130-400) 10^3/uL MPV Pending (8.0-11.0) fL Immature Gran % Pending % Neutrophils % Pending % Lymphocytes % Pending % Monocytes % Pending % Eosinophils % Pending % Basophils % Pending % Nucleated RBC % (0.0-0.3) % Absolute Neutrophils Pending (1.2-6.7) 10^3/uL Absolute Lymphocytes Pending (1.2-3.4) 10^3/uL Absolute Monocytes Pending (0.1-0.8) 10^3/uL Absolute Eosinophils Pending (0.0-0.7) 10^3/uL Absolute Basophils Pending (0.0-0.2) 10^3/uL VBG Lactate (<or=2.0) mmol/L Sodium Pending (136-145) mmol/L Potassium Pending (3.5-5.1) mmol/L Chloride Pending (98-107) mmol/L Carbon Dioxide Pending (21.0-32.0) mmol/L Anion Gap Pending (3-11) mmol/L BUN Pending (7-18) mg/dL Creatinine Pending (0.55-1.02) mg/dL Est GFR (CKD-EPI 2020) Pending (mL/min/1.73m2) Glucose Pending (74-106) mg/dL Hemoglobin A1c Pending Calcium Pending (8.5-10.1) mg/dL Magnesium (1.8-2.4) mg/dL Total Bilirubin Pending (0.2-1.0) mg/dL AST Pending (15-37) U/L ALT Pending (14-59) U/L Alkaline Phosphatase Pending (46-116) U/L Ammonia < 10 L (11-32) umol/L Troponin I (<or=51) ng/L Total Protein Pending (6.4-8.2) g/dL Albumin Pending (3.4-5.0) g/dL Lipase (<78) U/L TSH (0.36-3.74) uIU/mL Free T4 (0.76-1.46) ng/dL Urine Color Yellow (Yellow) Urine Clarity Clear (Clear) Urine pH 6.0 (5-8) Ur Specific [place] 1.020 (1.005-1.025) Urine Protein Negative (Neg-Trace) mg/dL Urine Ketones Trace H (Negative) mg/dL Urine Blood Negative (Negative) Urine Nitrite Negative (Negative) Urine Bilirubin Negative (Negative) Urine Urobilinogen 0.2 (Up to 0.2) mg/dL Ur Leukocyte Esterase Negative (Negative) Urine Glucose Negative (Negative) mg/dL Urine Opiates Screen Negative (Negative) Urine Methadone Screen Negative (Negative) Ur Barbiturates Screen Negative (Negative) Ur Tricyclics Screen Negative (Negative) Ur Amphetamines Screen Negative (Negative) U Benzodiazepines Scrn Positive A (Negative) Urine Cocaine Screen Negative (Negative) Ur THC Screen Negative (Negative) Ethyl Alcohol (<10) mg/dL 03/16/25 Range/Units 21:45 WBC 4.59 (4.4-10.8) 10^3/uL RBC 3.86 L (3.93-5.22) 10^6/uL Hgb 13.4 (11.2-15.7) g/dL Hct 40.4 (36.0-46.0) % MCV 105 H (80-95) fL MCH 34.7 H (27.0-33.0) pg MCHC 33.2 (32.0-36.0) % RDW 13.8 (11.7-14.6) % Plt Count 258 (130-400) 10^3/uL MPV 10.0 (8.0-11.0) fL Immature Gran % 0.2 % Neutrophils % 50.6 % Lymphocytes % 35.5 % Monocytes % 12.2 % Eosinophils % 1.1 % Basophils % 0.4 % Nucleated RBC % 0.0 (0.0-0.3) % Absolute Neutrophils 2.32 (1.2-6.7) 10^3/uL Absolute Lymphocytes 1.63 (1.2-3.4) 10^3/uL Absolute Monocytes 0.56 (0.1-0.8) 10^3/uL Absolute Eosinophils 0.05 (0.0-0.7) 10^3/uL Absolute Basophils 0.02 (0.0-0.2) 10^3/uL VBG Lactate 2.9 H* (<or=2.0) mmol/L Sodium 141 (136-145) mmol/L Potassium 4.0 (3.5-5.1) mmol/L Chloride 100 (98-107) mmol/L Carbon Dioxide 31.6 (21.0-32.0) mmol/L Anion Gap 9.4 (3-11) mmol/L BUN 12 (7-18) mg/dL Creatinine 1.0 (0.55-1.02) mg/dL Est GFR (CKD-EPI 2020) 58.39 (mL/min/1.73m2) Glucose 140 H (74-106) mg/dL Hemoglobin A1c Calcium 9.7 (8.5-10.1) mg/dL Magnesium 2.1 (1.8-2.4) mg/dL Total Bilirubin 0.2 (0.2-1.0) mg/dL AST 13 L (15-37) U/L ALT 13 L (14-59) U/L Alkaline Phosphatase 86 (46-116) U/L Ammonia (11-32) umol/L Troponin I 7 (<or=51) ng/L Total Protein 7.6 (6.4-8.2) g/dL Albumin 3.5 (3.4-5.0) g/dL Lipase 29 (<78) U/L TSH 74.89 H (0.36-3.74) uIU/mL Free T4 0.37 L (0.76-1.46) ng/dL Urine Color (Yellow) Urine Clarity (Clear) Urine pH (5-8) Ur Specific [place] (1.005-1.025) Urine Protein (Neg-Trace) mg/dL Urine Ketones (Negative) mg/dL Urine Blood (Negative) Urine Nitrite (Negative) Urine Bilirubin (Negative) Urine Urobilinogen (Up to 0.2) mg/dL Ur Leukocyte Esterase (Negative) Urine Glucose (Negative) mg/dL Urine Opiates Screen (Negative) Urine Methadone Screen (Negative) Ur Barbiturates Screen (Negative) Ur Tricyclics Screen (Negative) Ur Amphetamines Screen (Negative) U Benzodiazepines Scrn (Negative) Urine Cocaine Screen (Negative) Ur THC Screen (Negative) Ethyl Alcohol 49.3 H (<10) mg/dL Intake and Output - 24 Hour Total 03/16/25 19:32 thru 03/16/25 19:34 Weight 99.79 kg Falls Risk Assessment History of Falls No History 03/16/25 22:01 Contributing Factors No Factors 03/16/25 22:01 Ambulatory Aids Independent 03/16/25 22:01 Tubes/Lines None 03/16/25 22:01 Gait Evaluation No gait disturbance 03/16/25 22:01 Cognition No cognitive impairment 03/16/25 22:01 Fall Total Score 0 03/16/25 22:01 Level of Risk Standard/Low Risk 03/16/25 22:01 Problems (Last Reviewed 01/12/25 @ 11:07 by Vidhi Park MD) Obesity (Chronic) On deep vein thrombosis (DVT) prophylaxis (Acute) Parkinson disease (Chronic) Urinary and bowel incontinence (Acute) Diarrhea (Acute) Hypothyroidism (Chronic) Noncompliance with medications (Acute) Depression (Chronic) Diabetic neuropathy (Acute) Alcohol use disorder (Acute) v v v v v v v v v Sending and/or Receiving Nurses: Please use comment section below to note any information pertinent to the patient hand-off not included above. Information / Comments: this nurse assist patient oriented x3, alert, no complains transfer for further treatment. Report received from: DONI Zarate
[2025-03-17 18:37] VITALS: BP 137/81; PULSE 77; RESP 16; TEMP 36.8; O2SAT 96
[2025-03-17 21:08] VITALS: BP 132/64; PULSE 76; RESP 18; TEMP 36.5; O2SAT 93
[2025-03-17 22:28] LABS: Abs Immature Grans 0.01 10^3/uL (0.0-0.06); HCT 41.1 % (36.0-46.0); HGB 13.6 g/dL (11.2-15.7); Immature Grans % 0.2 %; MCH 34.2 pg (27.0-33.0); MCHC 33.1 % (32.0-36.0); MCV 103 fL (80-95); MPV 10.3 fL (8.0-11.0); Platelet Count 245 10^3/uL (130-400); RBC 3.98 10^6/uL (3.93-5.22); RDW 13.7 % (11.7-14.6); RDW-SD 52.9 fL; WBC 6.54 10^3/uL (4.4-10.8)
[2025-03-17 22:43] LABS: ALT 7 U/L (14-59); AST 15 U/L (15-37); Albumin 3.5 g/dL (3.4-5.0); Alkaline Phosphatase 85 U/L (46-116); Anion Gap 5.9 mmol/L (3-11); BUN 18 mg/dL (7-18); Bilirubin, Total 0.4 mg/dL (0.2-1.0); CO2 35.1 mmol/L (21.0-32.0); Calcium 9.2 mg/dL (8.5-10.1); Chloride 95 mmol/L (98-107); Estimated GFR 46.91 (mL/min/1.73m2); Glucose 134 mg/dL (74-106); Potassium 3.8 mmol/L (3.5-5.1); Sodium 136 mmol/L (136-145); Total Protein 7.6 g/dL (6.4-8.2)
[2025-03-17 22:48] LABS: Hemoglobin A1C 6.1 % (<5.7)
[2025-03-18] MEDS: Melatonin 3 MG TAB 6 MG PO ×2 (00:29→19:52)
[2025-03-18] MEDS: Acetaminophen 325 MG TAB 650 MG PO (00:29)
[2025-03-18] MEDS: Levothyroxine 150 MCG TAB PO (06:43)
[2025-03-18 07:39] LABS: HCT 42.3 % (36.0-46.0); HGB 14.4 g/dL (11.2-15.7); MCH 35.2 pg (27.0-33.0); MCHC 34.0 % (32.0-36.0); MCV 103 fL (80-95); MPV 10.7 fL (8.0-11.0); Platelet Count 252 10^3/uL (130-400); RBC 4.09 10^6/uL (3.93-5.22); RDW 13.9 % (11.7-14.6); RDW-SD 53.4 fL; WBC 6.54 10^3/uL (4.4-10.8)
[2025-03-18 08:03] LABS: Anion Gap 12.4 mmol/L (3-11); BUN 19 mg/dL (7-18); CO2 31.6 mmol/L (21.0-32.0); Calcium 9.2 mg/dL (8.5-10.1); Chloride 94 mmol/L (98-107); Estimated GFR 46.91 (mL/min/1.73m2); Glucose 139 mg/dL (74-106); Potassium 3.6 mmol/L (3.5-5.1); Sodium 138 mmol/L (136-145)
[2025-03-18] MEDS: Ipratropium HFA 12.9 GM 200 PUFF INH IH ×4 (08:20→20:28)
[2025-03-18] MEDS: Tiotropium Bromide-Respimat 10 PUFF INH 2 PUFF IH (08:21)
[2025-03-18] MEDS: Budesonide/Formoterol 160/4.5 6 GM 60 PUFF INH IH ×2 (08:22→20:28)
[2025-03-18] MEDS: Escitalopram 20 MG TAB 40 MG PO (08:36)
[2025-03-18] MEDS: Mirabegron 25 MG TABCR PO (08:36)
[2025-03-18] MEDS: Torsemide 20 MG TAB 40 MG PO (08:37)
[2025-03-18] MEDS: Carbidopa 25/Levodopa 100 TAB PO ×2 (08:37→19:52)
[2025-03-18] MEDS: Pantoprazole 40 MG TABCR PO (08:37)
[2025-03-18 09:05] VITALS: BP 110/48; PULSE 69; RESP 16; TEMP 36.5; O2SAT 92
--- NOTE | 2025-03-18 11:22 | IN_ITS ---
PT Notes Visit Reasons: Intractable Diarrhea, Positive Ethyl Level Physical Therapy Inpatient Initial Evaluation Date:03/18/2025 Referring Doctor: Dr Bay PT Orders: PT CONSULT: Limited Ability Precautions: Fall Risk Patient Profile/Admitting Diagnosis: Pt is a 74 yo female presented to ED after recommendation from [facility] d/t excessively drinking, anxiety and depression. Pt initially monitored in Zone B then transitioned wot Med Surg Unit. Pt is awaiting bed availability at [facility] or [facility] [place]. Work up in ED revealed Hypothyroidism. Pt now being treated for this. PT Consult placed. PMHX: Obesity (Chronic) On deep vein thrombosis (DVT) prophylaxis (Acute) Parkinson disease (Chronic) Urinary and bowel incontinence (Acute) Diarrhea (Acute) Hypothyroidism (Chronic) Noncompliance with medications (Acute) Depression (Chronic) Diabetic neuropathy (Acute) Imbalance (Acute) Bowel habit changes (Acute) Coffee ground emesis (Acute) Alcohol use disorder (Acute) Medical History Sigmoidoscopy performed (~10/21/20) Tremor Spinal stenosis Skin lesion of face Rotator cuff tear Osteoporosis Obstructive sleep apnea Left shoulder tendonitis Knee pain, left Impingement of shoulder Herpes virus disease Head trauma Type 2 diabetes mellitus Cognitive impairment signs for selfChronic cough Bronchitis Obesity (BMI 30.0-34.9) Abscess Abdominal pain in female Neurogenic claudication Macrocytic anemia Impingement syndrome of right shoulder Leg edema Dyspnea Pain of left hip joint GERD (gastroesophageal reflux disease) COPD (chronic obstructive pulmonary disease) Asthma Hypertensive disorder Depressive disorder Anxiety Hypothyroidism Surgical History History of esophagogastroduodenoscopy (~10/2024) History of laparotomy History of cholecystectomy (~07/05/22) Hx of tonsillectomy Hx of appendectomy (~1964) H/O: hysterectomy (~1990) History of knee replacement (~06/17/09) BHistory of hip replacement Pt states that this surgery was not a hip replacement, but a repair of her abductor muscles.H/O elbow surgery H/O colonoscopy (~10/2024) Patient did not have adequate prep Social History/Home Situation: Pt resides with her male partner/ in single family home. She was independent ambulation prior to onset of depression. Equipment Owned/DME:none Subjective: Pt states she twisted/ hurt her ankle (right) getting onto the stretcher in the ED. Objective: [] General Observation: Female presented semireclined in bed. Right ankle swelling noted to lateral aspect no ecchymosis noted Mental Status: Alert and oriented x 4, cooperative, able to follow instructions, flat affect, need cues for encouragement agreeable to participate in evaluation Pain: right posterior ankle/ plantar aspect of calcaneus with end ROM PF and DF ROM: [] Right Upper Extremity: WFL Left Upper Extremity: WFL limited elevation abduction IR Right Lower Extremity: WFL except DF to neutral with knee extension and painful Left Lower Extremity: WFL DF to neutral with knee extension Strength: [] Right Upper Extremity: 4/5 Left Upper Extremity: shoulder 3-/5, elbow and wrist 4/5 Right Lower Extremity: hips 3-/5, knee 3/5 ankle 3-/5 DF/PF Left Lower Extremity: hip 3-/5 knee 3/5 ankle 3/5 Sensation: diminished B feet d/t neuropathy Bed Mobility/Transfers: [] Supine to sit min A Sit to stand CGA and cues for hand placement Stand to sit CGA and cues for hand placement Bed to chair CGA with FWW Gait: Ambulate with FWW CGA 40 feet including turns antalgic gait right lower extremity due to right ankle pain, reduced step length reduced foot clearance bilaterally Balance: [] Static Sitting: [] Normal Dynamic Sitting: Good Static Standing: Good with upper extremity support Dynamic Standing: Fair with upper extremity support Special Tests: [] Mobility Limitations Standardized Measure [] [facility] AM-PAC 6 clicks Basic Mobility Inpatient Short Form: [] Raw Score: 18 CMS Score: 46.58% deficit Informed Consent/Education: Patient instructed in purpose of PT consult. Patient education provided regarding importance of being out of bed for meals to build her activity tolerance. Assessment: Patient is a 74-year-old female who presents with clinical signs and symptoms consistent with current/admitting diagnoses that have resulted to mobility limitations, gait instability, generalized weakness, and impairment of motor control as demonstrated by the following impairment level findings: 1. Decreased strength to BUE/BLE major muscle groups 2. Impaired standing balance 3. Limitation of joint range of motion in bilateral ankle right greater than left, left shoulder 4. Pain right ankle 5. Impaired functional activity tolerance Impairments are contributing to the following functional limitations: 1. Inability to safely ambulate without assistive device 2. Increase completion time for mobility ADL performance 3. Increased fall risk 4. Difficulty performing stairs 5. AM-PAC score of 18/46.58% impairment/deficit indicating risk for readmission if discharged to community without services/support Patient is assessed as a low complexity based on the following: History: 74-year-old female with impairment level findings, functional limitations, and past medical history as indicated above Examination: Demonstrable impairment in strength, balance, and mobility level with underlying impairments and functional limitations as documented above Presentation: Stable Decision Making: Low Goals: 1. Independent bed mobility 2. Mod I transfers with least restrictive device 3. Mod I ambulation with least restrictive device greater than 150 feet x 2 4. Supervision 5 stairs with rail Plan of Care/Treatment Plan: 1-2x/day, 7 days/week x 1 week. Plan of care has been reviewed with the ROLLER DIE CUTTING MACHINE OPERATOR providing the service under Physical Therapy direction. Initiate Physical Therapy intervention for strengthening, bed mobility, transfers, gait, stairs, balance training, use of assistive device. DISCHARGE RECOMMENDATIONS: Home with HHPT when medically appropriate TREATMENT CODE/TIME: [id number] Thank you for the opportunity to participate in the care of this patient. Kimmy Mckinley, PT [facility]
--- NOTE | 2025-03-18 15:54 | PTTR_ITS ---
PT Notes Visit Reasons: Intractable Diarrhea, Positive Ethyl Level Date: 03/18/2025 PRECAUTIONS: Fall, Standard, Activity as tolerated. SUBJECTIVE: Pt in bed sleeping when approached for therapy this afternoon, pt agreed to participating with therapy intervention. OBJECTIVE: ?swelling BLE ? PAIN: left ankle VITALS: Monitored via telemetry Therapeutic Activities 52345: Direct one-on-one instruction in dynamic activiti es to improve functional performance. ?? BED MOBILITY/TRANSFERS? Rolling L/R: supervision Supine-sit: ? supervision? Sit-supine: ? supervision? Sit-stand: ? CGA? Stand-sit: ??CGA? Bed-Chair:? CGA ? Chair-bed: CGA Provided skilled cues and instruction on performance and technique throughout. Gait Training 59382: Direct one-on-one instruction and skilled instruction in: Employing an assistive device Modified weight-bearing status Movement sequencing Turning and movement with proper form Provided verbal cues for equipment management and technique Provided instruction in gait pattern Patient education regarding pacing and breathing techniques to maximize activity tolerance? GAIT? Assistive Device: ??FWW ? Weight bearing: FWB Assist: ?CGA? Distance:?? 40'x2? Deviation: ? Slow raymond speed, short step length, low step height, BUE loading, stoop forward posture? Neuromuscular Re-education 87006: Activities that facilitate re-education of movement balance, posture, coordination, and proprioception or kinesthetic sense, requiring skilled tactile and verbal cues Exercises/techniques: ? Static sitting on te EOB 3mins? Static standing FWW 3mins Standing multidirectional weight shifting ASSESSMENT:?Pt reports she feels much better being able to stand and walk after being in bed the whole day. PLAN: Continue with balance training, global strengthening and general conditioning for improved safety, mobility and activity tolerance until pt is ready for DC. TREATMENT CODE/TIME: [id number] 25mins(3:22-3:47pm)
--- NOTE | 2025-03-18 16:06 | PGE_ITS ---
Date of Service Date of service: 03/18/25 Time of Service: 16:07 Assessment and Plan Assessment and plan (1) Diarrhea: Status: Acute Assessment and plan: C-Diff and stool pathogen PCR No stool X 24 hours will d/c C-diff Recent antibiotic as of 03/08/25 in outpatient setting (2) Urinary and bowel incontinence: Status: Acute Assessment and plan: On home medicine regimen for urinary incontinence discussed with urology Jose R will take at least 6 weeks to start being effective No BM -pending C-diff order d/c (3) Hypothyroidism: Status: Chronic Assessment and plan: Resumtion of home medicine regimen - was not taking medicine at home T3 level ordered - to determine of the patient would be a candidate for replacement Considering endocrinology consult- but not if ongoing improvement TSH 74 and T4 0.37- retest in 4 weeks unless deteriorating this might be linked to her increased depression, swelling - no profound bradycardia - SA HR staying in the 60's w PVC's Will d/c Telemetry (4) Alcohol use disorder: Status: Acute Assessment and plan: CIWA - assessment - Ethyl 49 on 03/15 Not scoring will d/c (5) Depression: Status: Chronic Assessment and plan: Continue home antidepressant drug (6) Diabetic neuropathy: Status: Acute Assessment and plan: no drug regimen listed - Lyrica to be considered (7) Parkinson disease: Status: Chronic Assessment and plan: On home medicine regimen (8) Herpes virus disease: Assessment and plan: On home medicine regimen (9) Type 2 diabetes mellitus: Assessment and plan: A1c 6.1 Ongoing Gluc AC and HS with SSI AC (10) Cognitive impairment: Assessment and plan: Hx of No major clinical signs From zone B - see mental health and psych notes [facility] referral pending (11) GERD (gastroesophageal reflux disease): Assessment and plan: Hx of Ongoing IV PPI (12) COPD (chronic obstructive pulmonary disease): Assessment and plan: Outpatient medicine regimen with spiriva (13) Asthma: Assessment and plan: outpatient inhaled ICS (14) On deep vein thrombosis (DVT) prophylaxis: Status: Acute Assessment and plan: LMWH (15) Obesity: Status: Chronic Assessment and plan: Nutrition consult GLP-1 will defer to outpatient therapy: not to be considered at this time in the setting of depression and thyroid dysfunction Discussed with Dr. Nunez Subjective Subjective Patient reports: no new complaints, feels better, tolerating liquids well, tolerating a regular diet, voiding w/o difficulty (incontinent ), shortness of breath and other (Appears more awake and less tired , still feels cold, no fever ,no palpitation ); denies diarrhea, nausea, vomiting or fever Exam Narrative Exam Narrative: Alert and oriented X3,improving swelling to face , neurologically intact,clear lungs, S1, S2 regular , no murmur, abdomen is non-distended, soft and non- tender, no CVA tenderness, moves all 4 ext but slowly some minor achiness to LEs moving against gravity -but improving weakness Objective Last Vital Signs Temp 36.5 C 03/18/25 09:05 Pulse 69 03/18/25 09:05 Resp 16 03/18/25 09:05 BP 110/48 L 03/18/25 09:05 Pulse Ox 92 03/18/25 09:05 Laboratory Results - last 24 hr 03/17/25 03/18/25 22:18 06:50 WBC 6.54 6.54 RBC 3.98 4.09 Hgb 13.6 14.4 Hct 41.1 42.3 MCV 103 H 103 H MCH 34.2 H 35.2 H MCHC 33.1 34.0 RDW 13.7 13.9 Plt Count 245 252 MPV 10.3 10.7 Immature Gran % 0.2 Neutrophils % 61.9 Lymphocytes % 23.5 Monocytes % 13.5 Eosinophils % 0.6 Basophils % 0.3 Nucleated RBC % 0.0 Absolute Neutrophils 4.05 Absolute Lymphocytes 1.54 Absolute Monocytes 0.88 H Absolute Eosinophils 0.04 Absolute Basophils 0.02 Sodium 136 138 Potassium 3.8 3.6 Chloride 95 L 94 L Carbon Dioxide 35.1 H 31.6 Anion Gap 5.9 12.4 H BUN 18 19 H Creatinine 1.2 H 1.2 H Est GFR (CKD-EPI 2020) 46.91 46.91 Glucose 134 H 139 H Hemoglobin A1c 6.1 H Calcium 9.2 9.2 Total Bilirubin 0.4 AST 15 ALT 7 L Alkaline Phosphatase 85 Total Protein 7.6 Albumin 3.5 PAWSS Have you Been Recently Intoxicated or Drunk Within the Last 30 days?: Yes Have you Ever Experienced Previous Episodes of Alcohol Withdrawal?: Unable to Obtain Have you ever Experienced Withdrawal Seizures?: No Have you ever Experienced Delirium Tremens(DT)s?: No Have you ever undergone Alcohol Rehabilitation Treatment (i.e, inpt ot outpatient treatment programs)?: Yes Have you ever Experienced Blackouts?: No Have you ever Combined Alcohol with other Downers within the last 90 days?: No Have you ever Combined Alcohol with any other Substance of Abuse during the last 90 days?: Unable to Obtain Positive Blood Alcohol level on Presentation? [PCS.BAL]: Yes Evidence of Increased Autonomic Activity (i.e. HR>120, tremor, sweating, agitation, nausea)?: Yes Result: 4 Time Spent with Patient Time Spent with Patient: >50 minutes Time was spent: preparing to see the patient(eg.review tests), obtaining and/or reviewing separately otained hiistory, ordering medications,tests, procedures, referring, communicating with other health interior plant caretaker, indepentently interpreting results, counseling the patient, care coordination and other
--- NOTE | 2025-03-18 17:10 | PDOC.MHPN2 ---
Date of service: 03/18/25 Time of Service: 16:07 Mental Health Emergency Note Release [facility] release signed:: Yes Reason for Visit This is being imported for [facility] [place] Client is being reassessed in the ICU of [facility], where they are waiting for an inpatient bed. Client is voluntary, and while she reports that placement isn't ideal she says, I have to do something. She denies SI/HI, but does report that she'd like to fall asleep and never wake up. In the last 2 weeks has the pt presented for ES prior to today?: No Impression Client remains on the ICU to stabilize medically while she waits for inpatient hospitalization. She expresses being hopeful that she'll get what she needs during treatment, even though it is not her ideal situation to be going away from her home. She states, Something has to change. I've got to do something to get some help. Plan/Disposition Recommended Disposition: Hospitalization No. Plan: Client will continue to wait for inpatient hospital bed at [facility], where she is currently on the ICU. Person reported agreement to plan: Yes Reports/communication Outcome discussed with: ED/Personnel (Verbal given to [facility] staff. )
--- NOTE | 2025-03-18 17:52 | INITIAL_ITS ---
Date of service: 03/18/25 Time of Service: 17:52 Care Management Initial Assmt Initial Assessment Reason for Hospitalization: Depression, diarrhea Functional Status/Living Situation Patient Presentation: Elis was lying in bed with a blanket covering her, right up to her chin, when CM met with her. She was pleasant and engaged well during the conversation, but appeared lethargic and at times would close her eyes. She stated that she is still agreeable to going to [facility] or [facility] geriatric psych facilities, as she feels she needs to do something. She stated that she would prefer not to [facility], though, as she prefers a more formal setting. Elis lives in [place] with her S/O, Mary Beth, who is very supportive. She has two children who together have nine children; all of which live out of state. Mary Beth also has children and grandchildren who live locally. 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 She reported that she had a traumatic medical event a couple of years ago where she had her gallbladder removed, but was subsequently transferred to a hospital in [place] and was there for nine weeks. She stated that she made a good recovery, but was never back to normal, and feels that things have been getting worse for her since, specifically her mood and state of mind in general. This has impacted her functioning to a point where she does not feel like getting out of bed, moving around, or even eating at home. CM discussed therapy with Elis; she stated that she has seen one in the past, but hasn't been able to find one recently. She is agreeable to getting connected to a therapist in the community. CM encouraged her to get up and out of bed while inpatient, and also relayed this to staff. CM will continue to follow. 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: N 01/12/25, 09:26 Date Asked 03/16/25 03/16/25, 19:39 AD Date Reviewed COLST On File at [facility] COLST Date Scanned Code Status Resuscitation Status Full Code Insurance Coverage/Financial Issues Insurance: [facility] BCBS supplement Care Team Visit Care Team Role Provider Type Vivien Hidalgo APRN MD [facility] STAFF PHYSICIAN Jose Alejandro Mcpherson Primary Care Provider NON-[facility] STAFF PHYSICIAN Nelda Petty Other Providers PELOTA MAKER Ene Hays RDN, [facility] Other Providers LATEXER Rossy Worthy Other Providers PELOTA MAKER Yoon Carnes Other Providers PELOTA MAKER [facility] Other Providers OTHER Kayla Boateng RN Other Providers PELOTA MAKER Theron Cisneros RDN Other Providers LATEXER Maribel Grossman Other Providers PELOTA MAKER Geronimo Bay DO Emergency Provider [facility] STAFF PHYSICIAN Jeb Nunez Admit Provider [facility] STAFF PHYSICIAN Attending Provider Discharge Potential Discharge Needs: PCP F/U Appt and Other (coordinated mental health plan; inpatient geriatric psych vs safety plan) Anticipated Barriers to Discharge: Bed availability Patient/Family Education Needs: Review discharge instructions, discuss Ask Me Three Transportation: EMS Plan: Elis is medically cleared and being assessed by [facility] daily. She is not expressing SI/HI, but her depression is severe and impairing her normal level of functioning. Referrals are pending at [facility] for inpatient geriatric psych treatment. If accepted, she will transport via EMS. She may discharge home with a safety plan, if she stabilizes or begins to feel improvement with her medications restarted. She will follow up with [facility], her PCP, and her discharge plan of care. CM will continue to follow. Social Determinants of Health Screening Social Determinants of health last assessed in clinic: 03/18/25 Will the Patient Participate in the Screening?: Yes Do you worry about having a steady place to live?: no Problems where you live: no known problems In the past 12 months, have you had to go without electric, gas, oil or water in your home?: choose not to answer 1. Within the past 12 months, we worried whether our food would run out before we got money to buy more.: Never true 2. Within the past 12 months, the food we bought just didn't last and we didn't have money to get more.: Never true Has lack of transportation kept you from medical appointments or from doing things needed for daily living?: no Has anyone in your life made you feel unsafe or unsupported?: no How hard is it for you to pay for the very basics like food, housing, medical care, and heating? Would you say it is:: Not hard at all Do you want help finding or keeping work or a job?: I do not need or want help If for any reason you need help with day-to-day activities such as bathing, preparing meals, shopping, managing finances, etc., do you get the help you need?: I need a lot more help How often do you feel lonely or isolated from those around you?: Never Do you speak a language other than Icelandic at home?: No Does the patient want assistance with any of the above?: No Health Related Social Needs Health related social needs: material hardship(utilities) (Z59.12) and problems with daily activities (Z73.9) Health related social needs details: ETOH PFSH All Active Problems (Updated 03/17/25 @ 17:38 by Vivien Hidalgo APRN) Obesity (Chronic) On deep vein thrombosis (DVT) prophylaxis (Acute) Parkinson disease (Chronic) Urinary and bowel incontinence (Acute) Diarrhea (Acute) Hypothyroidism (Chronic) Noncompliance with medications (Acute) Depression (Chronic) Diabetic neuropathy (Acute) Imbalance (Acute) Bowel habit changes (Acute) Coffee ground emesis (Acute) Alcohol use disorder (Acute) Medical History Sigmoidoscopy performed (~10/21/20) Tremor Spinal stenosis Skin lesion of face Rotator cuff tear Osteoporosis Obstructive sleep apnea Left shoulder tendonitis Knee pain, left Impingement of shoulder Herpes virus disease Head trauma Type 2 diabetes mellitus Cognitive impairment signs for self Chronic cough Bronchitis Obesity (BMI 30.0-34.9) Abscess Abdominal pain in female Neurogenic claudication Macrocytic anemia Impingement syndrome of right shoulder Leg edema Dyspnea Pain of left hip joint GERD (gastroesophageal reflux disease) COPD (chronic obstructive pulmonary disease) Asthma Hypertensive disorder Depressive disorder Anxiety Hypothyroidism Surgical History History of esophagogastroduodenoscopy (~10/2024) History of laparotomy History of cholecystectomy (~07/05/22) Hx of tonsillectomy Hx of appendectomy (~1964) H/O: hysterectomy (~1990) History of knee replacement (~06/17/09) B History of hip replacement Pt states that this surgery was not a hip replacement, but a repair of her abductor muscles. H/O elbow surgery H/O colonoscopy (~10/2024) Patient did not have adequate prep Family History Father Diabetes Type 1 Hypertension Paternal Grandfather Diabetes Type 1 Social History Smoking/Tobacco Use Status: Current every day Tobacco Type: cigarettes Smoking risk assessment performed?: Yes Alcohol Intake: current Alcohol Intake frequency: 0-2 drinks per day Alcohol type: hard liquor Drug use: Never Substance use type: does not use Household members: friend(s) Housing: house Number of Children: 2 current occupation: Retired Current gender identity: female What type of physical activity do you participate in: independent ambulation Do you feel safe at home: Yes Do you feel safe in your relationship?: Yes
[2025-03-18 20:31] VITALS: RESP 16; O2SAT 90
[2025-03-19] MEDS: Levothyroxine 150 MCG TAB PO (06:04)
[2025-03-19 07:06] LABS: HCT 40.5 % (36.0-46.0); HGB 13.3 g/dL (11.2-15.7); MCH 33.9 pg (27.0-33.0); MCHC 32.8 % (32.0-36.0); MCV 103 fL (80-95); MPV 10.5 fL (8.0-11.0); Platelet Count 249 10^3/uL (130-400); RBC 3.92 10^6/uL (3.93-5.22); RDW 13.6 % (11.7-14.6); RDW-SD 52.7 fL; WBC 5.97 10^3/uL (4.4-10.8)
[2025-03-19 07:23] LABS: Anion Gap 8.8 mmol/L (3-11); BUN 21 mg/dL (7-18); CO2 34.2 mmol/L (21.0-32.0); Calcium 9.3 mg/dL (8.5-10.1); Chloride 94 mmol/L (98-107); Estimated GFR 42.62 (mL/min/1.73m2); Glucose 130 mg/dL (74-106); Potassium 3.4 mmol/L (3.5-5.1); Sodium 137 mmol/L (136-145)
[2025-03-19 07:26] VITALS: BP 124/66; PULSE 64; RESP 16; TEMP 37.1; O2SAT 92
--- NOTE | 2025-03-19 07:30 | W.NUTRFU ---
Date of service: 03/19/25 Time of Service: 12:00 Nutrition Note NOTE: Received nutrition consult request re: diabetes mgt/education. Attempted to visit with patient twice yesterday with her sleeping, covered up by blankets both times. Pt admitted with concerns over mental health, as well as acute diarrhea and many chronic conditions (COPD, Parkinsons, Hypothyroid, Depression, etoh use disorder). No diabetes meds at home. A1C of 6.1% on 03/17. Ordered for sensitive ss novolog at meals. Fasting glucose yesterday and today 139 and 130 respectively. Weight stable/consistent over the last 6 month with current BMI of 36.6 congruent with class II obesity. Current estimated energy needs: 1935kcals (recommend ~1600 for weight reduction), 88-111g protein (1.2-1.5g/kg AjBW), 1935mL fluid (1mL per required kcal) Monitoring: will monitor nutrition-related labs, po intake, desire/acceptance of ONS to support her intake. Time Spent in Nutritional Counseling and Treatment: 0
[2025-03-19 07:55] LABS: Calculated LDL 154 mg/dL (<100); Cholesterol 277 mg/dL (<200); HDL Cholesterol 91 mg/dL (>or=50); Triglyceride 160 mg/dL (<150)
[2025-03-19] MEDS: Ipratropium HFA 12.9 GM 200 PUFF INH IH ×2 (08:13→16:00)
[2025-03-19] MEDS: Budesonide/Formoterol 160/4.5 6 GM 60 PUFF INH IH (08:13)
[2025-03-19] MEDS: Tiotropium Bromide-Respimat 10 PUFF INH 2 PUFF IH (08:13)
[2025-03-19] MEDS: Torsemide 20 MG TAB 40 MG PO (09:05)
[2025-03-19] MEDS: Mirabegron 25 MG TABCR PO (09:05)
[2025-03-19] MEDS: Carbidopa 25/Levodopa 100 TAB PO ×2 (09:05→19:44)
[2025-03-19] MEDS: Escitalopram 20 MG TAB 40 MG PO (09:06)
[2025-03-19] MEDS: Enoxaparin 40 MG/0.4 ML SYR SC (09:06)
[2025-03-19] MEDS: Pantoprazole 40 MG TABCR PO (09:06)
--- NOTE | 2025-03-19 09:12 | PTTR_ITS ---
PT Notes Visit Reasons: Intractable Diarrhea, Positive Ethyl Level Inpatient Physical Therapy Treatment Note [facility] Date: 03/19/25 PRECAUTIONS: Fall precautions SUBJECTIVE: Pt still is reporting right ankle pain on the outside of her ankle. Pain increases when she brings her toes up. Not bad at rest. She is happy to work with PT today. OBJECTIVE: ? PAIN: See above VITALS: monitored by nursing Therapeutic Activities (21750u9): Direct one-on-one instruction in dynamic activities to improve functional performance. ? BED MOBILITY/TRANSFERS/GAIT? Sit-stand: CGA? Stand-sit: CGA ? Bed-Chair: CGA? Chair-bed: CGA Gait: Ambulates 150 ft w/CGA and use of RW appropriately, step through gait observed, required 2 standing breaks Provided skilled cues and instruction on performance and technique throughout. ? Exercises: LAQs x10, seated heel raises x10, marching in place x10 ? ASSESSMENT:? Pt demonstrated improved ambulatory activities today both with quality and distance. She does have observable swelling on the posterior and lateral ankle of her right ankle so strategies were discussed for managing this including elevating and performing ankle pumps. She is doing well with her mobility at this time. PLAN: Continue ambulation and exercise progressions TREATMENT CODE/TIME: Ther Act (09388 x1) - 15 min DISCHARGE RECOMMENDATION: Facility for mental health concerns vs home with [facility]
--- NOTE | 2025-03-19 12:03 | PHA.REVIEW2 ---
Pharmacy Admission Review Admission Clinical Review Admission Pharmacy Review: On deep vein thrombosis (DVT) prophylaxis (Acute) Urinary and bowel incontinence (Acute) Diarrhea (Acute) Noncompliance with medications (Acute) Diabetic neuropathy (Acute) Alcohol use disorder (Acute) trazodone Allergy (Unknown, Verified 03/16/25 19:40) Other (See Comment) Resuscitation Status Full Code Height 5 ft 5 in Weight 99.79 kg Pharmacy Admission Review Renal Dosing Renal Dosing: BUN 21 mg/dL (7-18) H 03/19/25 06:36 Creatinine 1.3 mg/dL (0.55-1.02) H 03/19/25 06:36 Medications needing adjustments: Reviewed (CrCl 43.07 mL/min, BUN increased from 19 and SCr increased from 1.2) List of meds needing interventions: Current medications are okay Anticoagulation Anticoagulation: Hgb 13.3 g/dL (11.2-15.7) 03/19/25 06:36 Hct 40.5 % (36.0-46.0) 03/19/25 06:36 Plt Count 249 10^3/uL (130-400) 03/19/25 06:36 Creatinine 1.3 mg/dL (0.55-1.02) H 03/19/25 06:36 DVT Prophylaxis: Reviewed Medications: Enoxaparin (40mg daily) Relevant Labs Relevant Labs: Sodium 137 mmol/L (136-145) 03/19/25 06:36 Potassium 3.4 mmol/L (3.5-5.1) L 03/19/25 06:36 Chloride 94 mmol/L (98-107) L 03/19/25 06:36 Magnesium 2.1 mg/dL (1.8-2.4) 03/16/25 21:45 Electrolytes, C-Reactive P, ESR: Reviewed DM Control DM Control: Glucose 130 mg/dL (74-106) H 03/19/25 06:36 Hemoglobin A1c 6.1 % (<5.7) H 03/17/25 22:18 Finger Stick Blood Glucose 164 1143 Finger Stick Blood Glucose 164 1143 Finger Stick Blood Glucose 122 0745 Finger Stick Blood Glucose 122 0732 Finger Stick Blood Glucose 122 0731 Finger Stick Blood Glucose 122 0731 DM Control: Reviewed Insulin Dosing, Diabetic Medication: Has order for SS insulin Cardiac Review Cardiac Review: Troponin I 7 ng/L (<or=51) 03/16/25 21:45 BP, HR, EF%: Reviewed (HR and BP WNL) List meds needing interventions: Has order for torsemide 40mg PO daily QTc Review QTc: Reviewed (492 from 03/16/25) IV to PO Switch IV Medications: Reviewed Home Meds Home Med List reviewed: Intervened Relevent Home Meds Not ordered & why?: Trelegy (substituted with Symbicort and Spiriva per pharmacy protocol) Asked nurse to see if patient takes baclofen and diazepam at home - both recently filled but not on home med list. Per nurse patient does take baclofen 1 tablet 1-2 times daily as needed. Added to home med list. Current Meds Current Medication Order Review: Reviewed
[2025-03-19] MEDS: Insulin Aspart 300 UNITS/3 ML PEN SC ×2 (12:21→17:03)
--- NOTE | 2025-03-19 14:23 | PGE_ITS ---
Date of Service Date of service: 03/19/25 Time of Service: 14:23 Assessment and Plan Assessment and plan (1) Diarrhea: Status: Acute Assessment and plan: Reported from Zone B AIR TUBE RELEASER - one episode C-Diff testing discontinue - no stool output on 03/19 Stool pathogen PCR- discontinue - no stool output on 03/20- will initiate bowel meds in AM Recent antibiotic as of 03/08/25 in outpatient setting listed in records- Labs in AM (2) Urinary and bowel incontinence: Status: Acute Assessment and plan: On home medicine regimen for urinary incontinence discussed with urology Dr. Sanjay Odell will take at least 6 weeks to start being effective- will not try anticholinergic d/t side effects that could exacerbate S&S of primary hypothyroidism No BM since admitted to the floor (3) Hypothyroidism: Status: Chronic Assessment and plan: Resumption of home medicine regimen - was not taking medicine at home T3 level ordered - to determine of the patient would be a candidate for replacement Endocrinology consult- if not improving TSH 74 and T4 0.37- retest in 4 weeks unless deteriorating Most likely linked to her increased depression combined with not taking other medicines No longer on Telemetry-no profound bradycardia - SA HR staying in the 60's w PVC's (4) Alcohol use disorder: Status: Acute Assessment and plan: CIWA - assessment - Ethyl 49 on 03/15 Not scoring will d/c (5) Depression: Status: Chronic Assessment and plan: on home antidepressant (6) Diabetic neuropathy: Status: Acute Assessment and plan: no drug regimen listed - Lyrica to be considered - if not improving in the setting of hypothryroidism VS DM (7) Parkinson disease: Status: Chronic Assessment and plan: Home medicine regimen resumed (8) Herpes virus disease: Assessment and plan: Home medicine regimen resumed (9) Type 2 diabetes mellitus: Assessment and plan: A1c 6.1 Continue gluc AC and HS with SSI AC (10) Cognitive impairment: Assessment and plan: Hx of No major clinical signs From zone B - see mental health and psych notes [facility] referral still pending (11) GERD (gastroesophageal reflux disease): Assessment and plan: Hx of Ongoing IV PPI (12) COPD (chronic obstructive pulmonary disease): Assessment and plan: on outpatient Spiriva (13) Asthma: Assessment and plan: Ongoing outpatient inhaled ICS (14) On deep vein thrombosis (DVT) prophylaxis: Status: Acute Assessment and plan: On Lovenox (15) Obesity: Status: Chronic Assessment and plan: Nutrition consult completed report pending CMP in AM GLP-1 will defer to outpatient therapy: not to be considered at this time in the setting of depression and thyroid dysfunction Discussed with Dr. Nunez Subjective Subjective Patient reports: no new complaints, feels better (less tiured, oob to chair longer ), tolerating liquids well, tolerating a regular diet, voiding w/o difficulty (incontinent ongoing ), no bowel movement (since 03/17), shortness of breath and other (Appears more awake and less tired , still feels cold, no fever ,no palpitation ); denies diarrhea, nausea, vomiting or fever Exam Narrative Exam Narrative: Alert and oriented X3, reduced general face swelling , neurologically intact, and interacting , clear lungs, S1, S2 regular , no murmur, abdomen is non- distended, soft and non-tender, no CVA tenderness, moves all 4 ext with - ongoing improving weakness Objective Last Vital Signs Temp 37.1 C 03/19/25 07:26 Pulse 64 03/19/25 07:26 Resp 16 03/19/25 07:26 BP 124/66 03/19/25 07:26 Pulse Ox 92 03/19/25 07:26 Laboratory Results - last 24 hr 03/19/25 06:36 WBC 5.97 RBC 3.92 L Hgb 13.3 Hct 40.5 MCV 103 H MCH 33.9 H MCHC 32.8 RDW 13.6 Plt Count 249 MPV 10.5 Sodium 137 Potassium 3.4 L Chloride 94 L Carbon Dioxide 34.2 H Anion Gap 8.8 BUN 21 H Creatinine 1.3 H Est GFR (CKD-EPI 2020) 42.62 Glucose 130 H Calcium 9.3 Triglycerides 160 H Total Cholesterol 277 H LDL Cholesterol, Calc 154 H HDL Cholesterol 91 PAWSS Have you Been Recently Intoxicated or Drunk Within the Last 30 days?: Yes Have you Ever Experienced Previous Episodes of Alcohol Withdrawal?: Unable to Obtain Have you ever Experienced Withdrawal Seizures?: No Have you ever Experienced Delirium Tremens(DT)s?: No Have you ever undergone Alcohol Rehabilitation Treatment (i.e, inpt ot outpatient treatment programs)?: Yes Have you ever Experienced Blackouts?: No Have you ever Combined Alcohol with other Downers within the last 90 days?: No Have you ever Combined Alcohol with any other Substance of Abuse during the last 90 days?: Unable to Obtain Positive Blood Alcohol level on Presentation? [PCS.BAL]: Yes Evidence of Increased Autonomic Activity (i.e. HR>120, tremor, sweating, agitation, nausea)?: Yes Result: 4 Time Spent with Patient Time Spent with Patient: >50 minutes Time was spent: preparing to see the patient(eg.review tests), obtaining and/or reviewing separately otained hiistory, ordering medications,tests, procedures, referring, communicating with other health professional healthcare representative, indepentently interpreting results, counseling the patient, care coordination and other
--- NOTE | 2025-03-19 17:40 | PDOC.CMPRO ---
Date of service: 03/19/25 Time of Service: 17:41 Care Management Progress Note Progress Note Text Progress Note Text: Elis was sitting up in bed when CM met with her. CM noted that she looks like she is feeling better today, which she agreed with. She stated that she had a shower today, which was the first shower she has had in a month, and she was sitting up in the chair for a lot of the day. Her s/o, Dirkn was visiting, and also stated that she looks much better. CM discussed the importance of her taking her daily medication, both for her medical needs as well as her mental health needs. 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 CM discussed Elis getting connected with a therapist in the community, and suggested behavioral health at her PCP vs [facility], which she is agreeable to. Elis continues to be agreeable to inpatient psychiatric treatment at [facility], but if a bed is not available over the weekend, she will likely safety plan home. She would prefer to plan to go home on Saturday, if there is no bed for her on Saturday. CM relayed this information to [facility], who agrees with the plan. CM will continue to follow. Discharge Potential Discharge Needs: Other (Inpatient geriatric psych vs safety plan home) Anticipated Barriers to Discharge: Bed availability Patient/Family Education Needs: Review discharge instructions, discuss Ask Me Three Transportation: EMS (if going to inpatient treatment; otherwise, private vehicle with family) Plan: Elis is medically cleared and being assessed by [facility] daily. She is not expressing SI/HI, but her depression is severe and impairing her normal level of functioning. Referrals are pending at [facility] and [facility], for inpatient geriatric psych treatment. If accepted, she will transport via EMS. She may discharge home with a safety plan, if she stabilizes or begins to feel improvement with her medications restarted. If she returns home, she will have new orders for HH RN and PT. She will follow up with [facility], her PCP, and her discharge plan of care. CM will continue to follow. Social Determinants of Health Screening Social Determinants of health last assessed in clinic: 03/19/25 Will the Patient Participate in the Screening?: Yes Do you worry about having a steady place to live?: no Problems where you live: no known problems In the past 12 months, have you had to go without electric, gas, oil or water in your home?: choose not to answer 1. Within the past 12 months, we worried whether our food would run out before we got money to buy more.: Never true 2. Within the past 12 months, the food we bought just didn't last and we didn't have money to get more.: Never true Has lack of transportation kept you from medical appointments or from doing things needed for daily living?: no Has anyone in your life made you feel unsafe or unsupported?: no How hard is it for you to pay for the very basics like food, housing, medical care, and heating? Would you say it is:: Not hard at all Do you want help finding or keeping work or a job?: I do not need or want help If for any reason you need help with day-to-day activities such as bathing, preparing meals, shopping, managing finances, etc., do you get the help you need?: I need a lot more help How often do you feel lonely or isolated from those around you?: Never Do you speak a language other than Urdu at home?: No Does the patient want assistance with any of the above?: No Health Related Social Needs Health related social needs: material hardship(utilities) (Z59.12) and problems with daily activities (Z73.9) Health related social needs details: ETOH
[2025-03-19] MEDS: Melatonin 3 MG TAB 6 MG PO (19:44)
[2025-03-19 20:21] VITALS: BP 99/56; PULSE 69; RESP 16; TEMP 36.6; O2SAT 90
[2025-03-19 20:45] VITALS: BP 128/86; PULSE 86; RESP 18; TEMP 36.6; O2SAT 92
[2025-03-19] MEDS: Acetaminophen 325 MG TAB 650 MG PO (22:47)
[2025-03-20] MEDS: Levothyroxine 150 MCG TAB PO (05:53)
[2025-03-20 06:44] LABS: Abs Immature Grans 0.02 10^3/uL (0.0-0.06); HCT 40.2 % (36.0-46.0); HGB 13.5 g/dL (11.2-15.7); Immature Grans % 0.4 %; MCH 34.5 pg (27.0-33.0); MCHC 33.6 % (32.0-36.0); MCV 103 fL (80-95); MPV 10.7 fL (8.0-11.0); Platelet Count 237 10^3/uL (130-400); RBC 3.91 10^6/uL (3.93-5.22); RDW 13.5 % (11.7-14.6); RDW-SD 51.6 fL; WBC 5.09 10^3/uL (4.4-10.8)
[2025-03-20 07:08] LABS: ALT 11 U/L (14-59); AST 20 U/L (15-37); Albumin 3.4 g/dL (3.4-5.0); Alkaline Phosphatase 80 U/L (46-116); Anion Gap 10.9 mmol/L (3-11); BUN 26 mg/dL (7-18); Bilirubin, Total 0.4 mg/dL (0.2-1.0); CO2 33.1 mmol/L (21.0-32.0); Calcium 9.3 mg/dL (8.5-10.1); Chloride 93 mmol/L (98-107); Estimated GFR 42.62 (mL/min/1.73m2); Glucose 134 mg/dL (74-106); Potassium 3.6 mmol/L (3.5-5.1); Sodium 137 mmol/L (136-145); Total Protein 7.5 g/dL (6.4-8.2)
[2025-03-20 07:41] VITALS: BP 133/70; PULSE 53; RESP 16; TEMP 35.4; O2SAT 96
[2025-03-20] MEDS: Budesonide/Formoterol 160/4.5 6 GM 60 PUFF INH IH ×2 (08:36→19:45)
[2025-03-20] MEDS: Tiotropium Bromide-Respimat 10 PUFF INH 2 PUFF IH (08:36)
[2025-03-20] MEDS: Ipratropium HFA 12.9 GM 200 PUFF INH IH ×3 (08:36→19:45)
[2025-03-20] MEDS: Enoxaparin 40 MG/0.4 ML SYR SC (08:48)
[2025-03-20] MEDS: Carbidopa 25/Levodopa 100 TAB PO ×2 (08:48→19:23)
[2025-03-20] MEDS: Bisacodyl 5 MG TABEC PO (08:48)
[2025-03-20] MEDS: Torsemide 20 MG TAB 40 MG PO (08:48)
[2025-03-20] MEDS: Pantoprazole 40 MG TABCR PO (08:48)
[2025-03-20] MEDS: Mirabegron 25 MG TABCR PO (08:48)
[2025-03-20] MEDS: Escitalopram 20 MG TAB 40 MG PO (08:49)
--- NOTE | 2025-03-20 10:49 | PT.INTREAT ---
PT Notes Visit Reasons: Intractable Diarrhea, Positive Ethyl Level Inpatient Physical Therapy Treatment Note [facility] Date: 03/20/25 PRECAUTIONS: Fall precautions SUBJECTIVE: My foot feels a lot better today OBJECTIVE: ? PAIN: see above VITALS: monitored by nursing Therapeutic Activities (71478i3): Direct one-on-one instruction in dynamic activities to improve functional performance. ? BED MOBILITY/TRANSFERS? Rolling L/R: I Supine-sit: I ? Sit-supine: I ? Sit-stand: SBA? Stand-sit: SBA ? Bed-Chair: SBA? Chair-bed: SBA Provided skilled cues and instruction on performance and technique throughout. ? GAIT? Assistive Device: RW ? Weight bearing: WBAT Assist: SBA? Distance:? 300 ft ? Deviation: required 3 standing breaks ? ASSESSMENT:?Pt doing much better with her ambulatory status and endurance. She is now only SBA for all mobility. She should have no problems returning home safely if that is the route she takes. It is recommended that home health PT is involved if she does return home. PLAN: Continue ambulatory progressions TREATMENT CODE/TIME: Ther Act (14724) x2 - 30 min DISCHARGE RECOMMENDATION: Home with home health vs [facility]
[2025-03-20] MEDS: Insulin Aspart 300 UNITS/3 ML PEN SC ×2 (12:07→17:39)
--- NOTE | 2025-03-20 12:10 | PGE_ITS ---
Date of Service Date of service: 03/20/25 Time of Service: 12:10 Assessment and Plan Assessment and plan (1) Hypothyroidism: Status: Chronic Assessment and plan: Resumption of home medicine regimen - was not taking medicine at home T3 level ordered - to determine of the patient would be a candidate for replacement Endocrinology consult- if not improving TSH 74 and T4 0.37- retest in 4 weeks unless deteriorating Most likely linked to her increased depression combined with not taking other medicines No longer on Telemetry-no profound bradycardia - SA HR staying in the 60's w PVC's (2) Depression: Status: Chronic Assessment and plan: on home antidepressant - most likely worsened by above Denied SI or impulse to cause self-harm [facility]: ongoing evaluation for safety and safe d/c plan (3) Diarrhea: Status: Acute Assessment and plan: Resolved Reported from Zone B CONTENT MANAGEMENT SPECIALIST to floor - one episode C-Diff testing discontinue -Stool pathogen PCR- discontinue - no stool output Recent antibiotic as of 03/08/25 in outpatient setting listed in records- Now monitoring for constipation in the setting of point 1 Labs in AM (4) MARY LOU (acute kidney injury): Status: Acute Assessment and plan: Cr 1.3 from 1.0 - meeting criteria for stage I MARY LOU In the setting of point 1 and 2- reduced oral fluid intake despite encouragement , with frequent micturition , BUN gradually up to 26 from 12 IV crystalloid slow hydration Labs in AM Strict I&O Daily weight Urine osmo, Urine sodium (5) Urinary and bowel incontinence: Status: Acute Assessment and plan: On home medicine regimen for urinary incontinence- improving Initially discussed with urology Myrbetriq will take a few weeks to reach full effectiveness- will not try anticholinergic d/t side effects that could exacerbate S&S of primary hypothyroidism No BM since admitted to the floor - now on dulcolax daily (6) Type 2 diabetes mellitus: Assessment and plan: A1c 6.1 this stay Continue diabetic diet gluc AC and HS with SSI AC (7) Hyperlipidemia associated with type 2 diabetes mellitus: Status: Acute Assessment and plan: LDL 154, triglycerided 160, T chol 277, HDL 91 Will intiate statin-outpatient f/u Heart healthy diet (8) Alcohol use disorder: Status: Acute Assessment and plan: CIWA - assessment discontinued - Ethyl 49 on 03/15 Not scoring - (9) Diabetic neuropathy: Status: Acute Assessment and plan: Improving symptoms. No drug regimen listed - Lyrica to be considered - if not improving in the setting of DM VS hypothyroidism (10) Parkinson disease: Status: Chronic Assessment and plan: continue home Sinemet (11) Herpes virus disease: Assessment and plan: Home antiviral regimen resumed (12) Cognitive impairment: Assessment and plan: Hx of No major clinical signs From zone B - see mental health and psych notes [facility] referral still pending [facility] (13) GERD (gastroesophageal reflux disease): Assessment and plan: Hx of IV PPI - transitione to oral (14) COPD (chronic obstructive pulmonary disease): Assessment and plan: No exacerbation on outpatient Spiriva PRN nebs trelegy listed on home meds (15) Asthma: Assessment and plan: No exacerbation on outpatient inhaled ICS (16) On deep vein thrombosis (DVT) prophylaxis: Status: Acute Assessment and plan: Continue Lovenox (17) Obesity: Status: Chronic Assessment and plan: Nutrition consult completed report pending Normal LFT's elevated lipids GLP-1 will defer to outpatient therapy: not to be considered at this time in the setting of depression and thyroid dysfunction Discussed with Dr. Still Subjective Subjective Patient reports: feels better (ambulated w/o SOB, but still tired ), tolerating liquids well, tolerating a regular diet, voiding w/o difficulty (incontinent ongoing ), flatus, no bowel movement and other (Asking about going home - reminded [facility] to see her today and that tomorrow if no bed at [facility] - will d/c home, ); denies no new complaints (Slept poorly s/p BR uses X 2 last night ), di arrhea, nausea, vomiting, shortness of breath or fever Exam Narrative Exam Narrative: Alert and oriented X3,minimal general face swelling, but able to open eye lids , 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) , neurologically intact, clear lungs, S1, S2 regular , no murmur, abdomen is non-distended, soft and non-tender, no CVA tenderness, moves all 4 ext Objective Last Vital Signs Temp 35.4 C L 03/20/25 07:41 Pulse 53 L 03/20/25 07:41 Resp 16 03/20/25 07:41 BP 133/70 03/20/25 07:41 Pulse Ox 96 03/20/25 07:41 Laboratory Results - last 24 hr 03/20/25 06:05 WBC 5.09 RBC 3.91 L Hgb 13.5 Hct 40.2 MCV 103 H MCH 34.5 H MCHC 33.6 RDW 13.5 Plt Count 237 MPV 10.7 Immature Gran % 0.4 Neutrophils % 53.9 Lymphocytes % 30.3 Monocytes % 13.4 Eosinophils % 1.4 Basophils % 0.6 Nucleated RBC % 0.0 Absolute Neutrophils 2.75 Absolute Lymphocytes 1.54 Absolute Monocytes 0.68 Absolute Eosinophils 0.07 Absolute Basophils 0.03 Sodium 137 Potassium 3.6 Chloride 93 L Carbon Dioxide 33.1 H Anion Gap 10.9 BUN 26 H Creatinine 1.3 H Est GFR (CKD-EPI 2020) 42.62 Glucose 134 H Calcium 9.3 Total Bilirubin 0.4 AST 20 ALT 11 L Alkaline Phosphatase 80 Total Protein 7.5 Albumin 3.4 PAWSS Have you Been Recently Intoxicated or Drunk Within the Last 30 days?: Yes Have you Ever Experienced Previous Episodes of Alcohol Withdrawal?: Unable to Obtain Have you ever Experienced Withdrawal Seizures?: No Have you ever Experienced Delirium Tremens(DT)s?: No Have you ever undergone Alcohol Rehabilitation Treatment (i.e, inpt ot outpatient treatment programs)?: Yes Have you ever Experienced Blackouts?: No Have you ever Combined Alcohol with other Downers within the last 90 days?: No Have you ever Combined Alcohol with any other Substance of Abuse during the last 90 days?: Unable to Obtain Positive Blood Alcohol level on Presentation? [PCS.BAL]: Yes Evidence of Increased Autonomic Activity (i.e. HR>120, tremor, sweating, agitation, nausea)?: Yes Result: 4 Time Spent with Patient Time Spent with Patient: >50 minutes Time was spent: preparing to see the patient(eg.review tests), obtaining and/or reviewing separately otained hiistory, ordering medications,tests, procedures, referring, communicating with other health director critical care, indepentently interpreting results, counseling the patient, care coordination and other
[2025-03-20 13:33] LABS: Magnesium 1.9 mg/dL (1.8-2.4)
[2025-03-20] MEDS: Lactated Ringers 1,000 ML 125 ML IV ×2 (13:34→21:54)
[2025-03-20 14:38] LABS: Lab Add On Test DONE
[2025-03-20 15:57] LABS: Sodium, Urine 74 mmol/L
[2025-03-20] MEDS: Melatonin 3 MG TAB 6 MG PO (19:23)
[2025-03-20] MEDS: Atorvastatin 40 MG TAB PO (19:24)
[2025-03-20 20:55] VITALS: BP 132/82; PULSE 68; RESP 15; TEMP 36.8; O2SAT 93
[2025-03-20 21:56] LABS: Osmolality, Urine 346 mOsm/kg (150-1150)
--- NOTE | 2025-03-20 23:08 | MHPN_ITS ---
Date of service: 03/20/25 Time of Service: 15:34 Mental Health Emergency Note Release [facility] release signed:: Yes Reason for Visit The client is known to [facility] and has been seen by the crisis team while at the hospital as well as by mobile crisis. The client is currently at [facility] ED awaiting for inpatient treatment. This flex o writer operator meets with the client face to face for daily assessment. In the last 2 weeks has the pt presented for ES prior to today?: No Impression The client is a 74 year old female that resides in [place], [place] with her partner. The client is currently retired. Screening tools are not completed due to this being a re-assessment, however all under represented categories are honored during the assessment. The client is sitting on the edge of her bed dressed in a hospital gown when this flex o writer operator arrives in person. The client reports that she has been doing pretty good since being at the hospital, however has noticed an increase in anxiety both yesterday and today when she found out that she may be going back home tomorrow. The client reports that she wants to have the energy and be able to do tings when she gets back home, but does not know if she is going to be able to do this. The client reports that she does not wish to continue drinking when she arrives home, but also states that it is going to be hard especially going back to that environment. The client remains optimistic that she will be able to sustain from alcohol and be able to get established with outpatient supports and utilize the front por. Plan/Disposition Recommended Disposition: Hospitalization No. Plan: The client will be re-assessed tomorrow for possible discharge home while she continues to await for inpatient treatment in a geriatric inpatient facility. A referral will also be completed for therapy at the [facility]. Person reported agreement to plan: Yes Reports/communication Outcome discussed with: ED/Personnel (Verbal given to [facility] rn progressive care unit)
[2025-03-21] MEDS: Levothyroxine 150 MCG TAB PO (06:08)
[2025-03-21] MEDS: Lactated Ringers 1,000 ML 125 ML IV (06:08)
[2025-03-21 07:35] VITALS: BP 109/64; PULSE 63; RESP 16; TEMP 36.4; O2SAT 93
[2025-03-21 07:49] LABS: Anion Gap 9.3 mmol/L (3-11); BUN 27 mg/dL (7-18); CO2 33.7 mmol/L (21.0-32.0); Calcium 9.0 mg/dL (8.5-10.1); Chloride 95 mmol/L (98-107); Estimated GFR 52.08 (mL/min/1.73m2); Glucose 129 mg/dL (74-106); Potassium 4.1 mmol/L (3.5-5.1); Sodium 138 mmol/L (136-145)
[2025-03-21] MEDS: Tiotropium Bromide-Respimat 10 PUFF INH 2 PUFF IH (08:26)
[2025-03-21] MEDS: Ipratropium HFA 12.9 GM 200 PUFF INH IH ×3 (08:27→15:33)
[2025-03-21] MEDS: Budesonide/Formoterol 160/4.5 6 GM 60 PUFF INH IH (08:27)
[2025-03-21] MEDS: Pantoprazole 40 MG TABCR PO (08:36)
[2025-03-21] MEDS: Torsemide 20 MG TAB 40 MG PO (08:36)
[2025-03-21] MEDS: Enoxaparin 40 MG/0.4 ML SYR SC (08:36)
[2025-03-21] MEDS: Carbidopa 25/Levodopa 100 TAB PO (08:36)
[2025-03-21] MEDS: Bisacodyl 5 MG TABEC PO (08:36)
[2025-03-21] MEDS: Mirabegron 25 MG TABCR PO (08:36)
[2025-03-21] MEDS: Escitalopram 20 MG TAB 40 MG PO (08:36)
[2025-03-21] MEDS: Insulin Aspart 300 UNITS/3 ML PEN SC (12:19)
--- NOTE | 2025-03-21 13:31 | DSE_ITS ---
Date of service: 03/21/25 Time of Service: 13:31 DS: Diagnosis Discharge Diagnosis (1) Hypothyroidism: Status: Chronic (2) Depression: Status: Chronic (3) Diarrhea: Status: Acute (4) MARY LOU (acute kidney injury): Status: Acute (5) Urinary and bowel incontinence: Status: Acute (6) Hyperlipidemia associated with type 2 diabetes mellitus: Status: Acute (7) Alcohol use disorder: Status: Acute (8) Diabetic neuropathy: Status: Acute (9) Parkinson disease: Status: Chronic (10) On deep vein thrombosis (DVT) prophylaxis: Status: Acute (11) Obesity: Status: Chronic Discharge Plan Disposition Patient Disposition: Home Condition: Improving Discharge Details Reason For Visit: Intractable Diarrhea, Positive Ethyl Level Admit Date/Time: 03/17/25 17:41 Admit Provider: Jeb Nunez Attending Provider: Jeb Nunez Primary Care Provider: Jose Alejandro Mcpherson Hospital Course Hospital Course: 74-year-old female with history of depression, hypothyroidism, type 2 diabetes, Parkinson disease, COPD/asthma, and alcohol use disorder presented with diarrhea, urinary incontinence, swelling, and low mood. She had been residing in [facility] since 03/16/25 for depression monitoring. On admission, labs revealed profound hypothyroidism (TSH 74, T4 0.37). Ethanol level on 03/15 was 49. Patient admitted to medication non-compliance. She denied suicidal ideation, fever, chest pain, or headache. She reported ongoing diarrhea and urinary incontinence without dysuria. She was admitted to the hospitalist service on the medical- surgical floor with telemetry for further management. Hospital Course & Assessment/Plan * Diarrhea (acute): Resolved on its own * Urinary/bowel incontinence: Continued home regimen for urinary incontinence. * Hypothyroidism (severe, chronic with acute decompensation): Patient had not been taking levothyroxine consistently. * Alcohol use disorder: [facility] protocol initiated. Ethanol level 49 on 03/15. No withdrawal symptoms requiring benzodiazepines during admission. Counseling provided. * Depression: Continued home escitalopram. Evaluated by [facility] during hospitalization. Patient denied SI/HI and participated in discharge safety planning. * Diabetic neuropathy: No active pharmacologic regimen listed. Outpatient follow-up recommended. * Parkinson disease: Continued home carbidopa/levodopa. * Herpes virus disease: Continued valacyclovir PRN. * Type 2 diabetes mellitus: A1c 6.1. Monitored glucose AC/HS with SSI coverage. * Cognitive impairment: Stable; previously evaluated. * GERD: Continued PPI (pantoprazole). * COPD/asthma: Continued home inhalers and nebulizers. No exacerbation during hospitalization. * Obesity: GLP-1 therapy planned outpatient. * DVT prophylaxis: DOMONIQUE hose applied. * Other chronic conditions (APRIL, osteoporosis, HTN, chronic pain, spinal stenosis, anemia): Stable during admission. Pertinent Labs * TSH: 74.9 H * Free T4: 0.37 L * Ethanol: 49.3 H (03/15) * CBC: Hgb 13.4, MCV 105 H * CMP: within normal limits except glucose 140 H * Urinalysis: unremarkable * Toxicology: benzodiazepine screen positive (likely medication-related) Mental Health & Safety Evaluated by [facility]. Patient denied suicidal or homicidal ideation. She expressed excitement about seeing her grandchildren and reported feeling safe at home. Safety plan completed. Follow-up with [facility] scheduled for 03/22/25 at 2:30 pm. Condition at Discharge * Alert and oriented ?3 * Vital signs stable (T 36.4, BP 109/64, HR 63, RR 16, SpO2 93% on room air) * Ambulating independently, though slowly * Mood improved, engaged in discharge planning Disposition Discharged to home with outpatient support and follow-up. Discharge Instructions * Medications: Resume home regimen (see med reconciliation). Emphasized adherence to levothyroxine. Start Atrovastatin 40 mg nightly for cholesterol. * Follow-up: * [facility] therapy/case management 03/22/25 at 2:30 pm * PCP within 1?2 weeks * Recommend endocrinology referral to reassess thyroid replacement dosing if continues to be a concern after 6 weeks of medication compliance. * Safety: Reviewed signs of thyroid crisis, worsening depression, and alcohol withdrawal; advised to seek immediate care if symptoms develop. Recommendations for Follow Up Recommended tests to be ordered by follow up provider: TSH when appropriate (med non compliance); Triglycerides 160, Total cholesterol 277, LDL 154, HDL 91 - started on Atorvastatin 40 mg qhs Home Meds and New Rx's Prescriptions: New atorvastatin 40 mg Tablet 40 mg PO QPM Qty: 30 0RF Continued valacyclovir 500 mg Tablet 1,000 mg PO BID PRN Rx Instructions: take 2 tablets every 12 hours for 1 day Repeat as needed for flare ups. mirabegron [Myrbetriq] 25 mg tablet extended release 24 hr 25 mg PO DAILY carbidopa-levodopa 25-100 mg tablet 1 tab PO BID Qty: 60 5RF albuterol sulfate 2.5 mg /3 mL (0.083 %) solution for nebulization 2.5 mg inhalation Q6H PRN Atrovent HFA 17 mcg/actuation HFA aerosol inhaler 2 puff inhalation QID escitalopram oxalate 20 mg tablet 40 mg PO DAILY pantoprazole 40 mg tablet,delayed release (DR/EC) 40 mg PO DAILY torsemide 20 mg tablet 40 mg PO QAM budesonide [Pulmicort] 0.25 mg/2 mL suspension for nebulization 0.25 mg inhalation BID Trelegy Ellipta 200-62.5-25 mcg blister with device 1 inh INHALATION DAILY Patient Comments: INHALE ONE PUFF BY MOUTH EVERY DAY DIRECTED levothyroxine 150 mcg tablet 150 mcg PO DAILY Patient Comments: TAKE ONE TABLET BY MOUTH EVERY DAY baclofen 20 mg tablet 20 mg PO BID PRN Patient Comments: TAKE ONE TABLET BY MOUTH TWO TIMES DAILY NEEDED Discharge Instructions Additional Instructions: Reason for Hospital Stay: You were admitted for diarrhea, urinary incontinence, and very low thyroid hormone levels due to not taking your thyroid medication regularly. You were also monitored for depression. Medications * Thyroid medication (levothyroxine): Take every morning on an empty stomach with a full glass of water. This is very important for your health. * Start Atrovastatin 40 mg nightly for cholesterol. * Continue your other home medications as prescribed (for depression, stomach, breathing, Parkinson?s, and other conditions). * Do not stop any medication without talking to your doctor. Follow-Up Appointments * [facility] (mental health): 03/22/25 at 2:30 pm * Primary Care Provider (PCP): Within 1?2 weeks after discharge Activity * You may walk and move around as tolerated. * Use caution when standing or walking to prevent falls. Diet * Diabetic diet * Limit alcohol completely?it may worsen your depression, interact with medications, and affect your health. Safety / When to Call the Doctor Call your doctor right away or go to the Emergency Room if you have: * Severe diarrhea or new blood in stool * Chest pain, shortness of breath, or trouble breathing * New or worsening swelling in your legs, face, or eyelids * Severe confusion, unusual sleepiness, or trouble waking up * Thoughts of harming yourself or others * Shaking, sweating, fast heartbeat, or feeling like you might faint * Any signs of alcohol withdrawal (tremors, anxiety, seizures, hallucinations) Important Reminders * Take your thyroid medicine daily; missing doses can cause swelling, depression, and fatigue. * Start Atorvastatin * Bring all medications with you to every doctor?s appointment. * Keep follow-up visits to monitor thyroid, diabetes, and mood. Stand Alone Forms: Nursing Discharge Form Referrals: [facility] [Provider Group] Referral Note: Saturday, March 22, 2025 @ 2:30 PM Jose Alejandro Mcpherson [Primary Care Provider, Medicine] Referral Note: 1 week post hospitalization; med non compliance TSH 74 Activity:: Activity as Tolerated Equipment/Supplies:: No Equipment Needed Diet:: As Tolerated Discharge Orders Discharge Orders: Discharge Order (Routine); Ordered 03/21/25 Ordered By: Hanny Gil DS: Summary Time Spent with Patient providing and/or coordinating discharge services: Greater than 30 minutes Status at Discharge Functional status at discharge: independent ambulation Overall status at discharge: patient is progressing back to baseline Mental Status: mental status grossly normal Speech and Movement: speech and movement normal Mood: congruent mood Affect: normal affect Quality:SDOH Health Related Social Needs: Health related social needs material hardship daily ac tivities Health related social needs details ETOH Health related social needs details: ETOH Exam Psych Mental Status: mental status grossly normal Speech and Movement: speech and movement normal Mood: congruent mood Affect: normal affect DS: Data Vitals/I&O Vitals and I&O: Vital Signs Temperature 36.4 C L 03/21/25 07:35 Temperature Source Temporal Artery Scan 03/21/25 07:35 Pulse 63 03/21/25 07:35 Respiratory Rate 16 03/21/25 07:35 Respiratory Effort Normal 03/17/25 18:37 Respiratory Depth Normal 03/17/25 18:37 Respiratory Pattern Normal 03/17/25 18:37 Blood Pressure 109/64 03/21/25 07:35 Blood Pressure Mean 79 03/21/25 07:35 Pulse Oximetry 93 03/21/25 07:35 Oxygen Delivery Method Room Air 03/21/25 07:35 Oxygen Flow Rate 0 03/21/25 07:35 Pain Level 6 03/20/25 19:26 Comment PT refused vitals. Requested to let her sleep 03/18/25 20:55 Intake & Output 03/20/25 03/21/25 03/21/25 23:59 11:59 23:59 Intake Total 1240 / 1979 1360 / 2060.833 700.833 / 2060.833 Output Total 1150 / 1575 1400 / 1400 Balance 90 / 405 -40 / 660.833 700.833 / 660.833 Weight 99.79 kg Intake: IV 1000 / 1000 1000 / 1700.833 700.833 / 1700.833 Oral 240 / 980 360 / 360 Output: Urine 1150 / 1575 1400 / 1400 Other: Urine Color Yellow Yellow Urine Appearance Clear Clear Urine Odor Normal Normal Comment Voided most urine in toilet, missed hat. mixed w/ stool Stool Size Moderate Large Stool Characteristics Soft Soft Green Data Completed and Pending Labs on day of discharge: Labs from last 24 hours 03/21/25 03/20/25 03/20/25 07:00 15:38 06:05 Sodium 138 Potassium 4.1 Chloride 95 L Carbon Dioxide 33.7 H Anion Gap 9.3 BUN 27 H Creatinine 1.1 H Est GFR (CKD-EPI 2020) 52.08 Glucose 129 H Calcium 9.0 Magnesium 1.9 Urine Osmolality Pending Ur Random Sodium 74 Add-On Test Request DONE PFS All Active Problems (Updated 03/21/25 @ 13:41 by Hanny Gil NP) Hyperlipidemia associated with type 2 diabetes mellitus (Acute) MARY LOU (acute kidney injury) (Acute) Obesity (Chronic) On deep vein thrombosis (DVT) prophylaxis (Acute) Parkinson disease (Chronic) Urinary and bowel incontinence (Acute) Diarrhea (Acute) Hypothyroidism (Chronic) Noncompliance with medications (Acute) Depression (Chronic) Diabetic neuropathy (Acute) Imbalance (Acute) Bowel habit changes (Acute) Coffee ground emesis (Acute) Alcohol use disorder (Acute) Medical History Sigmoidoscopy performed (~10/21/20) Tremor Spinal stenosis Skin lesion of face Rotator cuff tear Osteoporosis Obstructive sleep apnea Left shoulder tendonitis Knee pain, left Impingement of shoulder Herpes virus disease Head trauma Type 2 diabetes mellitus Cognitive impairment signs for self Chronic cough Bronchitis Obesity (BMI 30.0-34.9) Abscess Abdominal pain in female Neurogenic claudication Macrocytic anemia Impingement syndrome of right shoulder Leg edema Dyspnea Pain of left hip joint GERD (gastroesophageal reflux disease) COPD (chronic obstructive pulmonary disease) Asthma Hypertensive disorder Depressive disorder Anxiety Hypothyroidism Surgical History History of esophagogastroduodenoscopy (~10/2024) History of laparotomy History of cholecystectomy (~07/05/22) Hx of tonsillectomy Hx of appendectomy (~1964) H/O: hysterectomy (~1990) History of knee replacement (~06/17/09) B History of hip replacement Pt states that this surgery was not a hip replacement, but a repair of her abductor muscles. H/O elbow surgery H/O colonoscopy (~10/2024) Patient did not have adequate prep Family History Father Diabetes Type 1 Hypertension Paternal Grandfather Diabetes Type 1 Social History Smoking/Tobacco Use Status: Current every day Tobacco Type: cigarettes Smoking risk assessment performed?: Yes Alcohol Intake: current Alcohol Intake frequency: 0-2 drinks per day Alcohol type: hard liquor Drug use: Never Substance use type: does not use Household members: friend(s) Housing: house Number of Children: 2 current occupation: Retired Current gender identity: female What type of physical activity do you participate in: independent ambulation Do you feel safe at home: Yes Do you feel safe in your relationship?: Yes Time Spent with Patient Time Spent with Patient: 45-69 minutes Time was spent: preparing to see the patient(eg.review tests), ordering medications,tests, procedures, referring, communicating with other health health care recruiter, indepentently interpreting results, counseling the patient and care coordination
--- NOTE | 2025-03-21 15:06 | CMDISCH_ITS ---
Date of service: 03/21/25 Time of Service: 15:06 LACE Index Scoring Tool Questions: Length of Stay (in days): 4 - 6 Was the patient admitted via the E.D.?: Yes Comorbidities: Diabetes w/o Complication and Chronic Pulmonary Disease E.D. Visits: 1 Answers: Total Score: 11 Risk of Readmission: High Risk Care Management Discharge Plan Reason for Hospitalization: diarrhea Discharge Plan: Elis did not receive a bed offer from either [facility] or [facility]. She met with [facility] Crisis screener Vannessa again today and was deemed safe for discharge on a safety plan. She will have close follow up with [facility] in the community. Patient/Family Education Needs: review of discharge instructions, follow up plan and discuss Ask Me Three Services Needed at Discharge: Outpatient Therapy SDOH Health Related Social Needs: Health related social needs material hardship daily ac tivities Health related social needs details ETOH Health related social needs details: ETOH
[2025-03-24 13:14] LABS: T3 (Triiodothyronine) Reverse 6.6 ng/dL (10-24)
== END 2025-03-21 16:17 | disposition home or self-care (01) ==
LOC: ER 03-17 16:56 → MS 03-17 18:30
PROVIDERS: Nurse Practitioner Acute Care; Physician Assistant; Admitting Provider Family Medicine; Emergency Provider Student in an Organized Health Care Education/Training Program; PCP Family Medicine; Responsible Provider Nurse Practitioner Family; Visit Provider Family Medicine
DX: N17.9 Acute kidney failure, unspecified (principal); R19.7 Diarrhea, unspecified; R15.9 Full incontinence of feces; R32 Unspecified urinary incontinence; E03.9 Hypothyroidism, unspecified; F32.A Depression, unspecified; I10 Essential (primary) hypertension; E11.40 Type 2 diabetes mellitus with diabetic neuropathy, unspecified; G20.A1 Parkinson's disease without dyskinesia, without mention of fluctuations; R41.89 Other symptoms and signs involving cognitive functions and awareness; K21.9 Gastro-esophageal reflux disease without esophagitis; J44.9 Chronic obstructive pulmonary disease, unspecified; E78.5 Hyperlipidemia, unspecified; E66.9 Obesity, unspecified; Z68.36 Body mass index [BMI] 36.0-36.9, adult; F10.20 Alcohol dependence, uncomplicated; Z91.148 Patient's other noncompliance with medication regimen for other reason; M81.0 Age-related osteoporosis without current pathological fracture; G47.33 Obstructive sleep apnea (adult) (pediatric); R05.3 Chronic cough; D53.9 Nutritional anemia, unspecified; B00.9 Herpesviral infection, unspecified; M79.89 Other specified soft tissue disorders
CPT/HCPCS: 00123; 36415; 80048; 80053; 80061; 80307; 83690; 83935; 85027; 93005; 94640; 97116; 97161; 97530; G0378; J1650; 71046; 80320; 81003; 82140; 83036; 83605; 83735; 84300; 84439; 84443; 84482; 84484; 85025; 93010; 94664; 94760; 99223; 99233; 99239; J1815